=== PATIENT | female | born 1980 | race African-American/Black ===

== ENCOUNTER 2016-08-21 18:23 | Emergency (ER) | payer MEDICARE, OTHER ==
[~2016-08-21] VITALS: Ht 162.6 cm; Wt 125.0 kg
[~2016-08-21 18:23] MED LIST: 1-ME1LIQ PO; CLEAPOW6 PO; CRAN500C2 PO; GLUCTAB PO; LISI-363 PO; NOVOLOGMXP SQ
[2016-08-21 18:26] VITALS: BP 155/96; PULSE 128; RESP 24; TEMP 98; O2SAT 96
[2016-08-21 19:30] VITALS: PULSE 99
[2016-08-21] MEDS ORDERED: SODIUM CHLORIDE 0.9% FLUSH 10 ML FLUSH IVF PRN (20:15)
--- NOTE | 2016-08-21 20:24 | PD ---
HPI Chief Complaint: Skin Problem Time Seen by Provider: 20:17 Travel History International Travel<30 days: No Contact w/Intl Traveler<30days: No Traveled to known affect area: No History of Present Illness HPI Patient comes in for evaluations painful lump in her right submandibular that she awoke with yesterday. Patient denies any trauma, fevers, nausea, vomiting, neck pain, headaches, chest pain, shortness of breath, dental pain, ear pain, or weight loss. Pain is worse with swallowing and eating. Patient states she has been taking her hydrocodone along with aspirin as well as placing the warm compress with little to no improvement of her pain. Denies any radiation of the pain. PFSH Past Medical History Arthritis: Yes Asthma: No Autoimmune Disease: No Blood Disorders: No Bipolar Disorder: Yes Anxiety: Yes Depression: Yes Heart Rhythm Problems: No Cancer: No Cardiovascular Problems: No High Cholesterol: Yes Chemotherapy: No Chest Pain: No Congestive Heart Failure: No COPD: No Cerebrovascular Accident: No Diabetes: Yes (METFORMIN, NOVOLIN ) Diminished Hearing: No Endocrine: No Gastrointestinal Disorders: No GERD: No Glaucoma: No Genitourinary: No Headaches: Yes Hepatitis: No Hiatal Hernia: No Hypertension: Yes Immune Disorder: No Kidney Stones: No Musculoskeletal: No Neurologic: No Psychiatric: Yes Reproductive: No Respiratory: No Immunizations Current: Yes Migraines: No Myocardial Infarction: No Radiation Therapy: No Renal Failure: No Seizures: No Sickle Cell Disease: No Sleep Apnea: No Thyroid Disease: No Ulcer: No : 0 Past Surgical History Abdominal Surgery: No AICD: No Appendectomy: No Arteriovenous Shunt: No Cardiac Surgery: No Cholecystectomy: No Ear Surgery: No Endocrine Surgery: No Eye Surgery: No Genitourinary Surgery: No Gynecologic Surgery: No Insulin Pump: No Joint Replacement: No Neurologic Surgery: No Oral Surgery: No Pacemaker: No Thoracic Surgery: No Other Surgery: No Social History Alcohol Use: Yes ("EVERY BLUE [employer]EL") Tobacco Use: Yes (1 PPD) Substance Use: Yes (COCAINE LAST USED MONDAY) Allergies-Medications (Allergen,Severity, Reaction): Coded Allergies: No Known Allergies (Verified , 07/02/15) Reported Meds & Prescriptions Reported Meds & Active Scripts Active Bactrim DS (Sulfamethoxazole-Trimethoprim) 800-160 Mg Tab 1 Tab PO BID Reported Novolog Mix 70/30 (Insulin Aspart Prota 70%/Aspart 30%) 100 Units/Ml Inj 50 Units SQ DAILY Lisinopril 20 mg (Lisinopril) 20 Mg Tab 20 Mg PO DAILY Polyethylene Glycol 3350 (Polyethylene Glycol) 3,350 Nf Pow 17 Gm PO DAILY PRN DISSOLVE 1 PACKET (17 GM) IN 4-8 OUNCES OF WATER OR JUICE BEFORE CONSUMPTION Cranberry (Cranberry (Vaccinium Macrocarp) 500 Mg Cap 500 Mg PO DAILY PRN 1-Methyl 2-Pyrrolidinone (1-Methyl 2-Pyrrolidone (Bulk)) 10 Mg Tab 1 Tab PO DAILY Glucophage XR 24 HR (Metformin HCl) 500 Mg Tab 500 Mg PO BIDPC Review of Systems Except as stated in HPI: all other systems reviewed are Neg Physical Exam Narrative GENERAL: Well-developed, overly nourished, in no acute distress, and non-ill appearing. SKIN: Warm and dry. HEAD: Atraumatic. Normocephalic. EYES: Pupils equal and round. EOMI. No scleral icterus. No injection or drainage. ENT: No nasal bleeding or discharge. Mucous membranes pink and moist. Tympanic membranes pearly richard bilaterally. Posterior pharynx nonerythematous without exudate. Uvula is midline. There is no visible or palpable dental abscess. Floor the mouth and submental or soft palpation. NECK: Trachea midline. Supple. No nuclear rigidity. Right submandible enlarged lymph node versus abscess versus other. RESPIRATORY: No accessory muscle use. No respiratory distress. Patient speaking in full sentences without difficulty. MUSCULOSKELETAL: No obvious deformities. No clubbing. No cyanosis. No edema. Full range of motion. NEUROLOGICAL: Awake and alert. No obvious cranial nerve deficits. Motor grossly within normal limits. Normal speech. PSYCHIATRIC: Appropriate mood and affect; insight and judgment normal. Data Data Last Documented VS Vital Signs Date Time Temp Pulse Resp B/P Pulse Ox O2 Delivery O2 Flow Rate FiO2 08/21/16 19:30 99 08/21/16 18:26 98.0 24 155/96 96 Room Air Orders Basic Metabolic Panel (Bmp) (08/21/16 20:15) Complete Blood Count With Diff (08/21/16 20:15) Iv Access Insert/Monitor (08/21/16 20:15) Sodium Chloride 0.9% Flush (Ns Flush) (08/21/16 20:15) Ct Soft Tiss Neck W Iv Cont (08/21/16 ) Ketorolac Inj (Toradol Inj) (08/21/16 22:45) Sodium Chlorid 0.9% 500 Ml Inj (Ns 500 M (08/21/16 22:45) Iohexol 350 Inj (Omnipaque 350 Inj) (08/21/16 23:11) Sulfamet-Trimeth Ds 800-160 Mg (Bactrim (08/21/16 23:30) Labs Laboratory Tests Test 08/21/16 08/21/16 20:50 21:30 White Blood Count 9.1 TH/MM3 Red Blood Count 4.53 MIL/MM3 Hemoglobin 12.4 GM/DL Hematocrit 36.6 % Mean Corpuscular Volume 80.8 FL Mean Corpuscular Hemoglobin 27.3 PG Mean Corpuscular Hemoglobin 33.8 % Concent Red Cell Distribution Width 15.0 % Platelet Count 313 TH/MM3 Mean Platelet Volume 8.2 FL Neutrophils (%) (Auto) 62.8 % Lymphocytes (%) (Auto) 26.0 % Monocytes (%) (Auto) 4.5 % Eosinophils (%) (Auto) 6.1 % Basophils (%) (Auto) 0.6 % Neutrophils # (Auto) 5.7 TH/MM3 Lymphocytes # (Auto) 2.4 TH/MM3 Monocytes # (Auto) 0.4 TH/MM3 Eosinophils # (Auto) 0.6 TH/MM3 Basophils # (Auto) 0.1 TH/MM3 CBC Comment DIFF FINAL Differential Comment Sodium Level 140 MEQ/L Potassium Level 4.4 MEQ/L Chloride Level 106 MEQ/L Carbon Dioxide Level 27.0 MEQ/L Anion Gap 7 MEQ/L Blood Urea Nitrogen 13 MG/DL Creatinine 1.04 MG/DL Estimat Glomerular Filtration 72 ML/MIN Rate Random Glucose 104 MG/DL Calcium Level 8.6 MG/DL [facility] Medical Decision Making Medical Screen Exam Complete: Yes Emergency Medical Condition: Yes Differential Diagnosis Lymphadenopathy, abscess, parotiditis, mass, other Narrative Course 2229 patient resting comfortably in bed in no acute distress talking on cellphone without difficulty. The patient has no evidence of obvious abscess at this time. The patient will be discharged on antibiotics for cellulitis. Clinical suspicion, diagnosis and care management was discussed. The patient was given signs and symptoms warnings for worsening infection, such as spreading of redness, increasing pain , and/or swelling, associated heat, pus or fever and instructed to return immediately if these signs or symptoms worsen. The patient is to return in 2 days for recheck. Sooner if worsens or as needed. The patient agrees with plan. Patient in no obvious distress upon re-evaluation. All pertinent laboratory/ Radiology result(s) discussed with patient. Patient was asked if they wanted to speak to my attending, which the patient did not wish to do at this time. Any questions/concerns in reference to patient diagnosis/condition discussed and clarified prior to patient's discharge. Reinforced sheer importance of close follow up with patient's primary physician or primary care clinic or return here in 2 days for recheck. Instructed patient to return to ED immediately, if symptoms return/worsen. Pt showed understanding of above instructions. Further instructions and recommendations were detailed in discharge paperwork. Pt ambulated without difficulty out of ED at discharge. Diagnosis Primary Impression: Cellulitis Qualified Code: L03.221 - Cellulitis of neck Patient Instructions: Cellulitis (ED), General Instructions Additional Instructions: Follow-up with your primary care physician or return here in 2 days for recheck. Take all medication as prescribed. Use [id number] ibuprofen as needed for additional pain control. Follow instructions on the packaging. Apply warm compresses to affected area multiple times a day. Do not take your metformin for 48 hours secondary to having IV contrast dye today to prevent kidney failure. Return to the emergency department if symptoms get worse. Med/Other Pt SpecificInfo: Prescription(s) given Scripts Sulfamethoxazole-Trimethoprim (Bactrim DS)800-160 Mg Tab1 Tab PO BID #20 TAB Ref 0 Prov:Vinod Minor MD 08/21/16 Disposition: 01 DISCHARGE HOME Condition: Stable Danny Priest Aug 21, 2016 20:24
[2016-08-21 21:04] LABS: AUTOMATED NEUTROPHIL # 5.7 TH/MM3 (1.8-7.7); BASOPHIL # 0.1 TH/MM3 (0-0.2); BASOPHIL % 0.6 % (0.0-2.0); EOSINOPHIL # 0.6 TH/MM3 (0-0.4); EOSINOPHIL % 6.1 % (0.0-4.0); HEMATOCRIT 36.6 % (35.0-46.0); HEMO FLAGS DIFF FINAL; LYMPHOCYTE # 2.4 TH/MM3 (1.0-4.8); MEAN CELL VOLUME 80.8 FL (80.0-100.0); MEAN CORPUSCULAR HEMOGLOBIN 27.3 PG (27.0-34.0); MEAN CORPUSCULAR HGB CONC 33.8 % (32.0-36.0); MONO % 4.5 % (0.0-8.0); NEUT % 62.8 % (16.0-70.0); PLATELET COUNT 313 TH/MM3 (150-450); RED BLOOD COUNT 4.53 MIL/MM3 (4.00-5.30); WHITE BLOOD COUNT 9.1 TH/MM3 (4.0-11.0)
[2016-08-21 22:31] LABS: POTASSIUM 4.4 MEQ/L (3.5-5.1)
[2016-08-21] MEDS ORDERED: KETOROLAC TROMETHAMINE 30 MG/ML (IVP) VIAL IV PUSH ONE (22:45)
[2016-08-21] MEDS ORDERED: SODIUM CHLORID 0.9% 500 ML INJ 500 ML IV ONE (22:45)
[2016-08-21] MEDS ORDERED: IOHEXOL 350 MG/ML 10 ML VIAL (for RAD DIAG) IV ONE (23:11)
--- NOTE | 2016-08-21 23:24 | RADRPT ---
EXAM DATE/TIME: 08/21/2016 23:05 [facility] COMPARISON: No previous studies available for comparison. INDICATIONS : Right neck swelling and pain. IV CONTRAST: 70 cc Omnipaque 350 (iohexol) IV RADIATION DOSE: 25.99 CTDIvol (mGy) MEDICAL HISTORY : Hypertension. Diabetes mellitus type 2. SURGICAL HISTORY : None. ENCOUNTER: Initial ACUITY: 1 day PAIN SCALE: 3/10 LOCATION: Right neck TECHNIQUE: Volumetric scanning of the neck was performed. Using automated exposure control and adjustment of th e mA and/or kV according to patient size, radiation dose was kept as low as reasonably achievable to obtain optimal diagnostic quality images. FINDINGS: NASOPHARYNX: The nasopharyngeal airway has a normal configuration. No mucosal thickening or mass is seen. OROPHARYNX: The intrinsic muscles of the tongue are symmetric. The tonsillar pillars are intact. The prevertebr al soft tissues are not thickened. LARYNX: The supraglottic, glottic, and infraglottic structures are intact. PARAPHARYNGEAL: The parapharyngeal space is intact. SALIVARY GLANDS: The parotid and submandibular glands are intact. LYMPH NODES: No enlarged or necrotic-appearing nodes. THYROID: Homogeneous enhancement without evidence of nodule. BONES: Mucous retention cyst in the floor the left maxillary sinus. Minimal induration of the skin/soft tiss ues in the submental region greater on the right. Submental lymph node measures 1 cm in short axis li hellen reactive. CONCLUSION: 1. Minimal induration of the skin/soft tissues the submental region greater on the right. No abscess identified. 2. Reactive lymph nodes in the submental region. Mariano Shi MD on August 21, 2016 at 23:20 Board Certified Radiologist. This report was verified electronically.
[2016-08-21] MEDS ORDERED: SULFAMETHOXAZOLE-TRIMETHOPRIM DS 800-160 MG TAB PO ONE (23:30)
[2016-08-21] MEDS ORDERED: BACT800T5 PO (23:32)
== END 2016-08-21 23:47 | disposition home or self-care (01) ==
LOC: NEPB 18:23
DX: L03.221 Cellulitis of neck (principal); E11.9 Type 2 diabetes mellitus without complications; I10 Essential (primary) hypertension; E78.00 Pure hypercholesterolemia, unspecified; F17.200 Nicotine dependence, unspecified, uncomplicated; Z79.4 Long term (current) use of insulin; Z87.39 Personal history of other diseases of the musculoskeletal system and connective tissue; Z86.59 Personal history of other mental and behavioral disorders
CPT/HCPCS: 70491; 80048; 85025; 96361; 96374; 99283; J1885; J7040; Q9967

== ENCOUNTER 2016-11-11 12:36 | Emergency (ER) | payer OTHER, MEDICARE ==
[~2016-11-11] VITALS: Ht 162.6 cm; Wt 130.0 kg
[~2016-11-11 12:36] MED LIST changes: +BACT800T5 PO
[2016-11-11 12:38] VITALS: BP 112/96; PULSE 79; RESP 16; TEMP 98.3; O2SAT 96
[2016-11-11] MEDS ORDERED: METHOCARBAMOL 500 MG TAB PO ONE (13:15)
[2016-11-11] MEDS ORDERED: IBUPROFEN 800 MG TAB PO ONE (13:15)
[2016-11-11] MEDS ORDERED: IBUP800T23 PO (13:19)
[2016-11-11] MEDS ORDERED: ROBA500T PO (13:19)
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
== END 2016-11-11 13:38 | disposition home or self-care (01) ==
LOC: NEPK 12:36
DX: S39.012A Strain of muscle, fascia and tendon of lower back, initial encounter (principal); S29.012A Strain of muscle and tendon of back wall of thorax, initial encounter; E11.9 Type 2 diabetes mellitus without complications; E78.00 Pure hypercholesterolemia, unspecified; I10 Essential (primary) hypertension; F17.210 Nicotine dependence, cigarettes, uncomplicated; V43.62XA Car passenger injured in collision with other type car in traffic accident, initial encounter; Y93.89 Activity, other specified; Y92.410 Unspecified street and highway as the place of occurrence of the external cause; Y99.8 Other external cause status
CPT/HCPCS: 99283

== ENCOUNTER 2017-02-18 19:49 | Emergency (ER) | payer MEDICARE, OTHER ==
[~2017-02-18] VITALS: Ht 162.6 cm; Wt 125.0 kg
[~2017-02-18 19:49] MED LIST changes: +IBUP800T23 PO; +ROBA500T PO
[2017-02-18 19:52] VITALS: BP 133/90; PULSE 101; RESP 16; TEMP 99.2; O2SAT 96
[2017-02-18] MEDS ORDERED: METF1000 PO (22:28)
[2017-02-18] MEDS ORDERED: NOVOINJ2 SQ (22:29)
[2017-02-18] MEDS: DEXAMETHASONE SOD PHOS 20 MG/5 ML VIAL IM ONE ×2 (22:30→22:32)
[2017-02-18] MEDS ORDERED: RESP: ALBUTEROL 2.5 MG/IPRATROPIUM 0.5 MG NEB (SCH) NEB ONE (22:30)
[2017-02-18] MEDS ORDERED: ALBUAER3 INH (22:30)
--- NOTE | 2017-02-18 22:30 | PD ---
HPI Chief Complaint: Cold / Flu Symptoms Time Seen by Provider: 22:23 Travel History International Travel<30 days: No Contact w/Intl Traveler<30days: No Traveled to known affect area: No History of Present Illness HPI 37 year-old female history diabetes presents to emergency department for evaluation of cough and chest congestion 1 day. Patient states it has been getting worse since yesterday. Denies fever or chills. Cough is nonproductive. States her chest feels tight. Denies any other symptoms at this time. PFSH Past Medical History Arthritis: Yes Asthma: No Autoimmune Disease: No Blood Disorders: No Bipolar Disorder: Yes Anxiety: Yes Depression: Yes Heart Rhythm Problems: No Cancer: No Cardiovascular Problems: No High Cholesterol: Yes Chemotherapy: No Chest Pain: No Congestive Heart Failure: No COPD: No Cerebrovascular Accident: No Diabetes: Yes Patient Takes Glucophage: Yes (METFORMIN 02/18/17 1000) Diminished Hearing: No Endocrine: No Gastrointestinal Disorders: No GERD: No Glaucoma: No Genitourinary: No Headaches: Yes Hepatitis: No Hiatal Hernia: No Hypertension: Yes Immune Disorder: No Kidney Stones: No Musculoskeletal: No Neurologic: No Psychiatric: Yes Reproductive: No Respiratory: No Immunizations Current: Yes Migraines: No Myocardial Infarction: No Radiation Therapy: No Renal Failure: No Seizures: No Sickle Cell Disease: No Sleep Apnea: No Thyroid Disease: No Ulcer: No ?: Not LMP: IRREG : 0 Past Surgical History Abdominal Surgery: No AICD: No Appendectomy: No Arteriovenous Shunt: No Cardiac Surgery: No Cholecystectomy: No Ear Surgery: No Endocrine Surgery: No Eye Surgery: No Genitourinary Surgery: No Gynecologic Surgery: No Insulin Pump: No Joint Replacement: No Neurologic Surgery: No Oral Surgery: No Pacemaker: No Thoracic Surgery: No Other Surgery: No Social History Alcohol Use: Yes ("EVERY BLUE [employer]EL") Tobacco Use: Yes Substance Use: Yes (COCAINE) Allergies-Medications (Allergen,Severity, Reaction): Coded Allergies: No Known Allergies (Verified , 02/18/17) Reported Meds & Prescriptions Reported Meds & Active Scripts Active Proair Hfa 8.5 GM Inh (Albuterol Sulfate) 90 Mcg/Act Aer 2 Puff INH Q4HR PRN 108 mcg/actuation Reported Novolog Mix 70-30 FlexPen Inj (Insulin Aspart Protam-Asp 70-30 Inj) 300 Unit/3 Ml Pen 60 Units SQ BID Metformin (Metformin HCl) 1,000 Mg Tab 1,000 Mg PO BIDPC With meals Review of Systems Except as stated in HPI: all other systems reviewed are Neg Physical Exam Narrative GENERAL: Obese female patient, ambulatory no acute distress SKIN: Focused skin assessment warm/dry. HEAD: Normocephalic. EYES: No scleral icterus. No injection or drainage. NECK: Supple, trachea midline. No JVD or lymphadenopathy. CARDIOVASCULAR: Elevated rate and rhythm without murmurs, gallops, or rubs. RESPIRATORY: Breath sounds diminished equal bilaterally. No accessory muscle use. GASTROINTESTINAL: Abdomen soft, non-tender, nondistended. MUSCULOSKELETAL: No cyanosis, or edema. BACK: Nontender without obvious deformity. No CVA tenderness. Data Data Last Documented VS Vital Signs Date Time Temp Pulse Resp B/P (MAP) Pulse Ox O2 Delivery O2 Flow Rate FiO2 02/18/17 22:53 02/18/17 22:45 97 21 02/18/17 19:52 99.2 101 16 Room Air Orders Orders Dexamethasone Inj (Decadron Inj) (02/18/17 22:30) Albuterol-Ipratropium Neb (Duoneb Neb) (02/18/17 22:30) MDM Medical Decision Making Medical Screen Exam Complete: Yes Emergency Medical Condition: Yes Medical Record Reviewed: Yes Differential Diagnosis Bronchitis versus common cold versus influenza versus pneumonia Narrative Course 37 year-old female presents to emergency department for evaluation of cough and chest congestion worsening 1 day. Patient appears without distress. She has slightly elevated heart rate and a temperature of 99.2. Her breath sounds are diminished, but otherwise exam is without acute concern. She is given 1 dose of Decadron IM here and a DuoNeb treatment. She does verbalize improvement in her symptoms and feeling that she can breathe better. She'll be given a pro- air inhaler. I'll not giving her any additional steroids, but counseled her on monitoring her blood glucose as this may cause a transient increase. Her primary care provider is Dr. Gibbons. I have encouraged her to follow-up with him. She agrees to return immediately with any acute worsening symptoms. Diagnosis Primary Impression: Bronchitis Referrals: Primary Care Physician Patient Instructions: Acute Bronchitis (ED), General Instructions Additional Instructions: Humidified air may help to alleviate symptoms Follow-up the her primary care provider Please monitor your blood glucose closely as you were given steroids here in the emergency department which will cause an increase in her blood glucose Return immediately to the emergency department with any acute worsening symptoms Med/Other Pt SpecificInfo: Prescription(s) given Scripts Albuterol 8.5 GM Inh (Proair Hfa 8.5 GM Inh) 90 Mcg/Act Aer 2 PUFF INH Q4HR Y for SHORTNESS OF BREATH, #1 INHALER 0 Refills 108 mcg/actuation Prov: Lili Llamas 02/18/17 Disposition: 01 DISCHARGE HOME Condition: Stable Lili Llamas Feb 18, 2017 22:30
[2017-02-18 22:45] VITALS: O2SAT 97
== END 2017-02-18 22:53 | disposition home or self-care (01) ==
LOC: NEPD 19:49
DX: J40 Bronchitis, not specified as acute or chronic (principal); E11.9 Type 2 diabetes mellitus without complications; I10 Essential (primary) hypertension; E78.00 Pure hypercholesterolemia, unspecified; Z72.0 Tobacco use; Z79.4 Long term (current) use of insulin; Z87.39 Personal history of other diseases of the musculoskeletal system and connective tissue; Z86.59 Personal history of other mental and behavioral disorders
CPT/HCPCS: 94664; 99283; J1100

== ENCOUNTER 2017-03-02 16:42 | Emergency (ER) | payer MEDICARE, OTHER ==
[~2017-03-02] VITALS: Ht 162.6 cm; Wt 130.0 kg
[~2017-03-02 16:42] MED LIST changes: -1-ME1LIQ PO; +ALBUAER3 INH; -BACT800T5 PO; -CLEAPOW6 PO; -CRAN500C2 PO; -GLUCTAB PO; -IBUP800T23 PO; -LISI-363 PO; +METF1000 PO; +NOVOINJ2 SQ; -NOVOLOGMXP SQ; -ROBA500T PO
[2017-03-02 16:49] VITALS: BP 117/81; PULSE 128; RESP 18; TEMP 98.6; O2SAT 99
[2017-03-02 16:58] VITALS: PULSE 110
--- NOTE | 2017-03-02 17:23 | PD ---
HPI Chief Complaint: ENT Complaint Time Seen by Provider: 17:22 Travel History International Travel<30 days: No Contact w/Intl Traveler<30days: No Traveled to known affect area: No History of Present Illness HPI 37-year-old female presents to emergency department complaint of not being applied here out of her right ear since last night. Says she tried cleaning her ear out with hydrogen peroxide with no success of regaining hearing. Denies ear pain. Denies nasal congestion, sore throat, fever, vomiting. Denies ear drainage. No known aggravating or relieving factors. Has no other medical complaints. No known allergies. No other modifying factors or associated signs and symptoms. PFSH Past Medical History Arthritis: Yes Asthma: No Autoimmune Disease: No Blood Disorders: No Bipolar Disorder: Yes Anxiety: Yes Depression: Yes Heart Rhythm Problems: No Cancer: No Cardiovascular Problems: No High Cholesterol: Yes Chemotherapy: No Chest Pain: No Congestive Heart Failure: No COPD: No Cerebrovascular Accident: No Diabetes: Yes Diminished Hearing: No Endocrine: No Gastrointestinal Disorders: No GERD: No Glaucoma: No Genitourinary: No Headaches: Yes Hepatitis: No Hiatal Hernia: No Hypertension: Yes Immune Disorder: No Kidney Stones: No Musculoskeletal: No Neurologic: No Psychiatric: Yes Reproductive: No Respiratory: No Immunizations Current: Yes Migraines: No Myocardial Infarction: No Radiation Therapy: No Renal Failure: No Seizures: No Sickle Cell Disease: No Sleep Apnea: No Thyroid Disease: No Ulcer: No : 0 Past Surgical History Abdominal Surgery: No AICD: No Appendectomy: No Arteriovenous Shunt: No Cardiac Surgery: No Cholecystectomy: No Ear Surgery: No Endocrine Surgery: No Eye Surgery: No Genitourinary Surgery: No Gynecologic Surgery: No Insulin Pump: No Joint Replacement: No Neurologic Surgery: No Oral Surgery: No Pacemaker: No Thoracic Surgery: No Other Surgery: No Social History Alcohol Use: Yes ("EV[employer]") Tobacco Use: Yes Substance Use: Yes (COCAINE) Allergies-Medications (Allergen,Severity, Reaction): Coded Allergies: No Known Allergies (Verified , 02/18/17) Reported Meds & Prescriptions Reported Meds & Active Scripts Active Proair Hfa 8.5 GM Inh (Albuterol Sulfate) 90 Mcg/Act Aer 2 Puff INH Q4HR PRN 108 mcg/actuation Reported Novolog Mix 70-30 FlexPen Inj (Insulin Aspart Protam-Asp 70-30 Inj) 300 Unit/3 Ml Pen 60 Units SQ BID Metformin (Metformin HCl) 1,000 Mg Tab 1,000 Mg PO BIDPC With meals Review of Systems Except as stated in HPI: all other systems reviewed are Neg Physical Exam Narrative GENERAL: Well-nourished, well-developed black female patient, in no acute distress; afebrile, nontoxic-appearing SKIN: Warm and dry. No rash. HEAD: Atraumatic. Normocephalic. EYES: Pupils equal and round. No scleral icterus. No injection or drainage. ENT: Mucosa pink and moist. Airway patent. EARS: Bilateral pinnae and external canals appear within normal limits. Left tympanic membrane without erythema, dullness or perforation. Unable to visualize right tympanic membrane secondary to foreign body or cerumen impaction. NECK: Trachea midline. No lymphadenopathy. CARDIOVASCULAR: Regular rate. RESPIRATORY: No accessory muscle use. GASTROINTESTINAL: Obese. MUSCULOSKELETAL: No obvious deformities. No clubbing. No cyanosis. No edema. NEUROLOGICAL: Awake and alert. Oriented 3. No obvious cranial nerve deficits. Motor grossly within normal limits. Normal speech. Moves all extremities. 5/5 strength to all extremities. PSYCHIATRIC: Appropriate mood and affect; insight and judgment normal. Data Data Last Documented VS Vital Signs Date Time Temp Pulse Resp B/P (MAP) Pulse Ox O2 Delivery O2 Flow Rate FiO2 03/02/17 16:58 110 03/02/17 16:49 98.6 18 117/81 (93) 99 MDM Medical Decision Making Medical Screen Exam Complete: Yes Emergency Medical Condition: Yes Medical Record Reviewed: Yes Differential Diagnosis Cerumen impaction, foreign body, otitis media Narrative Course 37-year-old female with a foreign body in her right ear. See my procedure note for foreign body removal. Right Tympanic membrane within normal limits after removal of foreign body. Instructed patient to follow up with primary care provider. Patient verbalizes understanding and agreement with treatment plan. Patient is medically cleared and stable for discharge. Discussed reasons to return to the emergency department. Patient agrees with treatment plan. The patients vital signs are stable and the patient is stable for outpatient follow- up and treatment. Patient discharged home, stable and in no acute distress. Procedures Procedure Narrative Right ear canal was flushed using warm water and a 10 mL syringe until the foreign body was cleared. Patient tolerated well. Diagnosis Primary Impression: Foreign body in right ear Qualified Codes: T16.1XXA - Foreign body in right ear, initial encounter Referrals: Primary Care Physician Patient Instructions: Ear Foreign Body (ED), General Instructions Additional Instructions: Follow-up with primary care provider Return to the emergency department immediately with worsening of symptoms Med/Other Pt SpecificInfo: No Meds Exist/No RX given Disposition: 01 DISCHARGE HOME Condition: Stable Patricia Urbina [employer] Mar 02, 2017 17:23
== END 2017-03-02 17:30 | disposition home or self-care (01) ==
LOC: NEPK 16:42
DX: T16.1XXA Foreign body in right ear, initial encounter (principal); E11.9 Type 2 diabetes mellitus without complications; I10 Essential (primary) hypertension; Z72.0 Tobacco use; X58.XXXA Exposure to other specified factors, initial encounter
CPT/HCPCS: 69200

== ENCOUNTER 2017-05-02 02:41 | Emergency (ER) | payer MEDICARE, OTHER ==
[~2017-05-02] VITALS: Ht 157.5 cm; Wt 125.0 kg
[2017-05-02 03:05] VITALS: BP 146/85; PULSE 98; RESP 16; TEMP 98.2; O2SAT 95
[2017-05-02 03:20] LABS: AUTOMATED NEUTROPHIL # 5.2 TH/MM3 (1.8-7.7); BASOPHIL # 0.1 TH/MM3 (0-0.2); BASOPHIL % 1.1 % (0.0-2.0); EOSINOPHIL # 0.4 TH/MM3 (0-0.4); EOSINOPHIL % 4.5 % (0.0-4.0); HEMATOCRIT 36.1 % (35.0-46.0); HEMO FLAGS DIFF FINAL; LYMPH % 23.9 % (9.0-44.0); LYMPHOCYTE # 1.9 TH/MM3 (1.0-4.8); MEAN CELL VOLUME 82.3 FL (80.0-100.0); MEAN CORPUSCULAR HEMOGLOBIN 26.8 PG (27.0-34.0); MEAN CORPUSCULAR HGB CONC 32.6 % (32.0-36.0); MONO % 5.6 % (0.0-8.0); NEUT % 64.9 % (16.0-70.0); PLATELET COUNT 280 TH/MM3 (150-450); RED BLOOD COUNT 4.38 MIL/MM3 (4.00-5.30); RED CELL DISTRIBUTION WIDTH 14.9 % (11.6-17.2)
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
[2017-05-02 03:41] LABS: ALT (GPT) 26 U/L (10-53); ANION GAP 7 MEQ/L (5-15); AST (GOT) 15 U/L (15-37); BICARBONATE 27.7 MEQ/L (21.0-32.0); BLOOD UREA NITROGEN 14 MG/DL (7-18); CHLORIDE 103 MEQ/L (98-107); GLOMERULAR FILTRATION RATE 67 ML/MIN (>89); POTASSIUM 3.7 MEQ/L (3.5-5.1); SODIUM (NA) 138 MEQ/L (136-145)
[2017-05-02 03:43] LABS: ALKALINE PHOSPHATASE 86 U/L (45-117); TOTAL BILIRUBIN ADULT 0.3 MG/DL (0.2-1.0)
[2017-05-02 03:49] LABS: ALCOHOL LESS THAN 3 MG/DL (0-5)
[2017-05-02 06:40] VITALS: BP 154/94; PULSE 101; RESP 17
[2017-05-02 08:13] VITALS: BP 166/93; PULSE 101; RESP 18; O2SAT 99
[2017-05-02] MEDS ORDERED: guaiFENesin/DEXTROMETHORPHAN 200 MG/20 MG/10 ML CUP PO ONE (08:45)
[2017-05-02] MEDS ORDERED: ACETAMINOPHEN 500 MG CPLT PO ONE (08:45)
[2017-05-02 10:14] VITALS: BP 119/72; PULSE 91; RESP 18; O2SAT 99
[2017-05-02 15:27] VITALS: BP 125/72; PULSE 94; RESP 18; O2SAT 100
[2017-05-02 18:24] VITALS: BP 128/60; PULSE 98; RESP 18; O2SAT 95
[2017-05-03] MEDS ORDERED: guaiFENesin/DEXTROMETHORPHAN 200 MG/20 MG/10 ML CUP PO ONE (02:30)
[2017-05-03 05:46] VITALS: BP 152/93; PULSE 92; RESP 17; O2SAT 96
[2017-05-03] MEDS: metFORMIN HCL 500 MG TAB PO ONE (06:30)
[2017-05-03 10:00] VITALS: BP 137/77; PULSE 108; RESP 18; TEMP 98.8; O2SAT 94
[2017-05-13] MEDS ORDERED: metFORMIN HCL 500 MG TAB PO SCH (10:00)
[2017-05-13] MEDS ORDERED: INSULIN ASPAR PROT 70/30 1,000 UNITS/10 ML VIAL SQ SCH (10:00)
== END 2017-05-03 12:17 ==
LOC: NEPD 02:41 → NEPJ 05-03 12:17
DX: R45.851 Suicidal ideations (principal); R44.0 Auditory hallucinations; F14.90 Cocaine use, unspecified, uncomplicated; M19.90 Unspecified osteoarthritis, unspecified site; F31.9 Bipolar disorder, unspecified; F41.9 Anxiety disorder, unspecified; E78.00 Pure hypercholesterolemia, unspecified; E11.9 Type 2 diabetes mellitus without complications; I10 Essential (primary) hypertension
CPT/HCPCS: 80053; 80307; 85025; 99285

== ENCOUNTER 2017-05-13 03:44 | Inpatient (IN) | payer MEDICARE, OTHER ==
[~2017-05-13] VITALS: Ht 162.6 cm; Wt 119.6 kg
[~2017-05-13 03:44] MED LIST changes: -ALBUAER3 INH
[2017-05-13 03:56] VITALS: BP 145/81; PULSE 118; RESP 20; TEMP 98.7; O2SAT 94
--- NOTE | 2017-05-13 04:44 | PD ---
HPI Chief Complaint: Psychiatric Symptoms Time Seen by Provider: 04:43 Travel History International Travel<30 days: No Contact w/Intl Traveler<30days: No Traveled to known affect area: No History of Present Illness HPI 37-year-old female here under Dietz act initiated by Police Department. According to her paperwork the patient has a drug addiction wants to kill herself because of it. The patient reports that she has been binging on crack cocaine. She was involved in an argument this evening with her girlfriend and she did tell them that she wanted to kill herself. She feels that this is primarily caused by her crack cocaine use. Currently she is denying any suicidal or homicidal thoughts. She has no medical complaints at this time. [facility] Past Medical History Arthritis: Yes Asthma: No Autoimmune Disease: No Blood Disorders: No Bipolar Disorder: Yes Anxiety: Yes Depression: Yes Heart Rhythm Problems: No Cancer: No Cardiovascular Problems: No High Cholesterol: Yes Chemotherapy: No Chest Pain: No Congestive Heart Failure: No COPD: No Cerebrovascular Accident: No Diabetes: Yes Patient Takes Glucophage: No Diminished Hearing: No Endocrine: No Gastrointestinal Disorders: No GERD: No Glaucoma: No Genitourinary: No Headaches: Yes Hepatitis: No Hiatal Hernia: No Hypertension: Yes Immune Disorder: No Kidney Stones: No Musculoskeletal: No Neurologic: No Psychiatric: Yes Reproductive: No Respiratory: No Immunizations Current: Yes Migraines: No Myocardial Infarction: No Radiation Therapy: No Renal Failure: No Seizures: No Sickle Cell Disease: No Sleep Apnea: No Thyroid Disease: No Ulcer: No Tetanus Vaccination: > 5 Years Influenza Vaccination: No ?: Unknown LMP: UNK : 0 Past Surgical History Abdominal Surgery: No AICD: No Appendectomy: No Arteriovenous Shunt: No Cardiac Surgery: No Cholecystectomy: No Ear Surgery: No Endocrine Surgery: No Eye Surgery: No Genitourinary Surgery: No Gynecologic Surgery: No Insulin Pump: No Joint Replacement: No Neurologic Surgery: No Oral Surgery: No Pacemaker: No Thoracic Surgery: No Other Surgery: No Social History Alcohol Use: Yes ("EV[employer]") Tobacco Use: Yes (4 cigarettes) Substance Use: Yes (crack COCAINE) Allergies-Medications (Allergen,Severity, Reaction): Coded Allergies: No Known Allergies (Verified , 03/02/17) Reported Meds & Prescriptions Reported Meds & Active Scripts Active Reported Novolog Mix 70-30 FlexPen Inj (Insulin Aspart Protam-Asp 70-30 Inj) 300 Unit/3 Ml Pen 60 Units SQ BID Metformin (Metformin HCl) 1,000 Mg Tab 1,000 Mg PO BIDPC With meals Review of Systems Except as stated in HPI: all other systems reviewed are Neg Physical Exam Narrative GENERAL: Well-nourished female in no acute distress SKIN: Warm and dry. HEAD: Atraumatic. Normocephalic. EYES: Pupils equal and round. No scleral icterus. No injection or drainage. ENT: No nasal bleeding or discharge. Mucous membranes pink and moist. NECK: Trachea midline. No JVD. CARDIOVASCULAR: Regular rate and rhythm. No murmur appreciated. RESPIRATORY: No accessory muscle use. Clear to auscultation. Breath sounds equal bilaterally. GASTROINTESTINAL: Abdomen soft, non-tender, nondistended. Hepatic and splenic margins not palpable. MUSCULOSKELETAL: No obvious deformities. No clubbing. No cyanosis. No edema. NEUROLOGICAL: Awake and alert. No obvious cranial nerve deficits. Motor grossly within normal limits. Normal speech. PSYCHIATRIC: Appropriate mood and affect; insight and judgment normal. Data Data Last Documented VS Vital Signs Date Time Temp Pulse Resp B/P (MAP) Pulse Ox O2 Delivery O2 Flow Rate FiO2 05/13/17 03:56 98.7 118 20 145/81 (102) 94 Orders Orders Ed Urine Pregnancytest Poc (05/13/17 03:52) Psych Screen (05/13/17 03:52) Drug Screen, Random Urine (05/13/17 03:52) Labs Laboratory Tests Test 05/13/17 04:12 [facility] Medical Decision Making Medical Screen Exam Complete: Yes Emergency Medical Condition: Yes Medical Record Reviewed: Yes Differential Diagnosis Substance-induced mood disorder, acute psychosis, adjustment reaction, major depressive disorder Narrative Course 37-year-old female here under Dietz act. Mental health screening discussed with the patient. Psychiatric screen ordered. Patient was here earlier in April. Lab work reviewed. Patient is medically cleared. Diagnosis Primary Impression: Substance induced mood disorder Homero Harrison May 13, 2017 04:44
--- NOTE | 2017-05-13 07:59 | PD ---
Physical Exam Date Seen by Provider: May 13, 2017 Narrative 37-year-old female presents to the emergency department requesting to receive assistance on detox. This patient was medically cleared by the previous provider and is ready to see psych. Patient's blood sugar was 325. After interviewing the patient, patient states that she does not check her blood sugar and that she just wants to be clean of crack cocaine. Patient denies fever, chills, chest pain, cough, shortness of breath, nausea, vomiting, diarrhea. Patient has a history of diabetes and asthma. Patient is not been using her medications or checking her blood sugar. Vital signs- stable. Mild tachycardia. Labs ordered to evaluate mild tachycardia and decreased oxygen saturation. Note that patient was reluctant to have any IV or labs drawn because of previous difficulty. Patient adamantly denies chest pain, shortness of breath, or pain anywhere else. Patient does have asthma may also have obstructive sleep apnea which may be cm to her tachycardia and decreased oxygenation. Laboratory Tests Test 05/13/17 04:12 05/13/17 08:25 05/13/17 09:05 Urine Opiates Screen NEG Urine Barbiturates Screen NEG Urine Amphetamines Screen NEG Urine Benzodiazepines Screen NEG Urine Cocaine Screen POS Urine Cannabinoids Screen POS White Blood Count 10.2 TH/MM3 Red Blood Count 4.38 MIL/MM3 Hemoglobin 12.0 GM/DL Hematocrit 36.1 % Mean Corpuscular Volume 82.5 FL Mean Corpuscular Hemoglobin 27.4 PG Mean Corpuscular Hemoglobin Concent 33.2 % Red Cell Distribution Width 14.4 % Platelet Count 303 TH/MM3 Mean Platelet Volume 8.4 FL Neutrophils (%) (Auto) 55.1 % Lymphocytes (%) (Auto) 28.1 % Monocytes (%) (Auto) 7.7 % Eosinophils (%) (Auto) 8.0 % Basophils (%) (Auto) 1.1 % Neutrophils # (Auto) 5.6 TH/MM3 Lymphocytes # (Auto) 2.9 TH/MM3 Monocytes # (Auto) 0.8 TH/MM3 Eosinophils # (Auto) 0.8 TH/MM3 Basophils # (Auto) 0.1 TH/MM3 CBC Comment DIFF FINAL Differential Comment Blood Urea Nitrogen 21 MG/DL Creatinine 1.30 MG/DL Random Glucose 334 MG/DL Calcium Level 8.8 MG/DL Sodium Level 135 MEQ/L Potassium Level 4.5 MEQ/L Chloride Level 104 MEQ/L Carbon Dioxide Level 25.0 MEQ/L Anion Gap 6 MEQ/L Estimat Glomerular Filtration Rate 55 ML/MIN Troponin I LESS THAN 0.02 NG/ML EKG without ST elevations or depressions. Sinus tachycardia. Chest x-ray without acute process. DDimer elevated. Will order CT angio to R/o PE. D-dimer slightly elevated. I explained to patient that there could be a clot in her lungs and requires CT to evaluate her lungs. Patient adamantly refuses to obtain another IV for her contrast. Patient is alert and oriented, not intoxicated, competent to make medical decisions. Patient understands wrist versus benefits. She also understands that if she changes her mind she may still obtain this test. I do not have a high suspicion pulmonary embolism. I suspect that the d-dimer is elevated secondary to uncontrolled diabetes. Patient will still be admitted to psych with medical consult. Pt will be admitted to psych per Dr. Haney. Data Data Last Documented VS Vital Signs Date Time Temp Pulse Resp B/P (MAP) Pulse Ox O2 Delivery O2 Flow Rate FiO2 05/13/17 08:00 106 18 170/70 (103) 94 Room Air 05/13/17 03:56 98.7 Orders Orders Ed Urine Pregnancytest Poc (05/13/17 03:52) Psych Screen (05/13/17 03:52) Drug Screen, Random Urine (05/13/17 03:52) Complete Blood Count With Diff (05/13/17 08:30) Basic Metabolic Panel (Bmp) (05/13/17 08:30) Troponin I (05/13/17 08:30) Electrocardiogram (05/13/17 08:30) Chest, Single Ap (05/13/17 08:30) D-Dimer (05/13/17 09:02) Admit To Inpatient Psych (05/13/17 ) Vital Signs (Adult) [id number].Q12H.E (05/13/17 09:05) Activity Oob Ad Jailyn (05/13/17 09:05) Lorazepam (Ativan) (05/13/17 09:15) Lorazepam (Ativan) (05/13/17 09:15) Acetaminophen (Tylenol) (05/13/17 09:15) Magnesium Hydroxide Liq (Milk Of Magnesi (05/13/17 09:15) Al-Mag Hy-Si 40-40-4 Mg/Ml Liq (Mag-Al P (05/13/17 09:15) Nicotine 21 Mg Patch.24 Hr (Habitrol 21 (05/13/17 10:00) Basic Metabolic Panel (Bmp) (05/14/17 06:00) Lipid Profile (05/14/17 06:00) Hemoglobin (Hgb) A1c (05/14/17 06:00) Labs Laboratory Tests Test 05/13/17 04:12 05/13/17 08:25 05/13/17 09:05 Urine Opiates Screen NEG Urine Barbiturates Screen NEG Urine Amphetamines Screen NEG Urine Benzodiazepines Screen NEG Urine Cocaine Screen POS Urine Cannabinoids Screen POS White Blood Count 10.2 TH/MM3 Red Blood Count 4.38 MIL/MM3 Hemoglobin 12.0 GM/DL Hematocrit 36.1 % Mean Corpuscular Volume 82.5 FL Mean Corpuscular Hemoglobin 27.4 PG Mean Corpuscular Hemoglobin Concent 33.2 % Red Cell Distribution Width 14.4 % Platelet Count 303 TH/MM3 Mean Platelet Volume 8.4 FL Neutrophils (%) (Auto) 55.1 % Lymphocytes (%) (Auto) 28.1 % Monocytes (%) (Auto) 7.7 % Eosinophils (%) (Auto) 8.0 % Basophils (%) (Auto) 1.1 % Neutrophils # (Auto) 5.6 TH/MM3 Lymphocytes # (Auto) 2.9 TH/MM3 Monocytes # (Auto) 0.8 TH/MM3 Eosinophils # (Auto) 0.8 TH/MM3 Basophils # (Auto) 0.1 TH/MM3 CBC Comment DIFF FINAL Differential Comment Blood Urea Nitrogen 21 MG/DL Creatinine 1.30 MG/DL Random Glucose 334 MG/DL Calcium Level 8.8 MG/DL Sodium Level 135 MEQ/L Potassium Level 4.5 MEQ/L Chloride Level 104 MEQ/L Carbon Dioxide Level 25.0 MEQ/L Anion Gap 6 MEQ/L Estimat Glomerular Filtration Rate 55 ML/MIN Troponin I LESS THAN 0.02 NG/ML D-Dimer Quantitative (PE/DVT) 0.81 MG/L FEU MDM Supervised Visit with KYLEIGH: Yes Diagnosis Primary Impression: Substance induced mood disorder Nyla Evangelista May 13, 2017 07:59
[2017-05-13 08:00] VITALS: BP 170/70; PULSE 106; RESP 18; O2SAT 94
[2017-05-13 08:47] LABS: AUTOMATED NEUTROPHIL # 5.6 TH/MM3 (1.8-7.7); BASOPHIL # 0.1 TH/MM3 (0-0.2); BASOPHIL % 1.1 % (0.0-2.0); EOSINOPHIL # 0.8 TH/MM3 (0-0.4); HEMATOCRIT 36.1 % (35.0-46.0); HEMO FLAGS DIFF FINAL; LYMPH % 28.1 % (9.0-44.0); LYMPHOCYTE # 2.9 TH/MM3 (1.0-4.8); MEAN CELL VOLUME 82.5 FL (80.0-100.0); MEAN CORPUSCULAR HEMOGLOBIN 27.4 PG (27.0-34.0); MEAN CORPUSCULAR HGB CONC 33.2 % (32.0-36.0); MONO % 7.7 % (0.0-8.0); NEUT % 55.1 % (16.0-70.0); PLATELET COUNT 303 TH/MM3 (150-450); RED BLOOD COUNT 4.38 MIL/MM3 (4.00-5.30); RED CELL DISTRIBUTION WIDTH 14.4 % (11.6-17.2); WHITE BLOOD COUNT 10.2 TH/MM3 (4.0-11.0)
--- NOTE | 2017-05-13 08:56 | RADRPT ---
EXAM DATE/TIME: 05/13/2017 08:37 [facility] COMPARISON: No previous studies available for comparison. INDICATIONS : Cough and shortness of breath. MEDICAL HISTORY : None. SURGICAL HISTORY : None. ENCOUNTER: Initial ACUITY: 1 month PAIN SCORE: 0/10 LOCATION: chest FINDINGS: A single view of the chest demonstrates the lungs to be symmetrically aerated without evidence of mas s, infiltrate or effusion. The cardiomediastinal contours are unremarkable. Osseous structures are intact. CONCLUSION: No acute disease. Jabari Disla MD on May 13, 2017 at 8:54 Board Certified Radiologist. This report was verified electronically.
[2017-05-13 09:09] LABS: BLOOD UREA NITROGEN 21 MG/DL (7-18); GLOMERULAR FILTRATION RATE 55 ML/MIN (>89)
[2017-05-13 09:10] LABS: ANION GAP 6 MEQ/L (5-15); CHLORIDE 104 MEQ/L (98-107); POTASSIUM 4.5 MEQ/L (3.5-5.1); SODIUM (NA) 135 MEQ/L (136-145)
[2017-05-13] MEDS ORDERED: ALUMINUM/MAGNESIUM/SIMETH 30 ML CUP PO PRN (09:15)
[2017-05-13] MEDS ORDERED: LORazepam 1 MG TAB PO PRN (09:15)
[2017-05-13] MEDS ORDERED: LORazepam 0.5 MG TAB PO PRN (09:15)
[2017-05-13] MEDS: NICOTINE 21 MG/24 HR PATCH T-DERMAL SCH (09:52)
[2017-05-13 10:28] VITALS: BP 130/74; PULSE 95; RESP 18; O2SAT 94
--- NOTE | 2017-05-13 11:51 | HHI.HP ---
Provisional Diagnosis Admission Date May 13, 2017 at 09:07 [place] I. Bipolar disorder, cocaine and cannabis use disorder [place] II. Deferred [place] III. Diabetes, hypertension [place] IV. Homelessness, lack of social and family support [place] V. 50 Certification of Person's Competence To Provide Express and Informed Consent I have personally examined Esmer Dee , a person being served at [facility] on, May 13, 2017 11:37. Express and informed consent means consent voluntarily given in writing, by a competent person, after sufficient explanation and disclosure of the subject matter involved to enable the person to make a knowing and willful decision without any element of force, fraud, deceit, duress, or other form of constraint or coercion. This person is 18 years of age or older, is not now known to be incompetent to consent to treatment with a guardian advocate, and does not have a health care surrogate or proxy currently making medical treatment decisions. I have found this person to be one of the following: [x] Competent to provide express and informed consent, as defined above, for voluntary admission to this facility and is competent to provide express and informed consent for treatment. He/she has the consistent capacity to make well reasoned, willful, and knowing decisions concerning his or her medical or mental health treatment. The person fully and consistently understands the purpose of the admission for examination/placement and is fully capable of personally exercising all rights assured under [place] Incompetent to provide express and informed consent to voluntary admission, and this is incompetent to provide express and informed consent to treatment. The person must be transferred to involuntary status and a petition for a guardian advocate filed with the Circuit Court. [] Refusing to provide express and informed consent to voluntary admission but is competent to provide express and informed consent for treatment. The person must be discharged or transferred to involuntary status. Form shall be completed within 24 hours of a person's arrival at the receiving facility and filed in the clinical record of each person: 1. Admitted on a voluntary basis 2. Permitted to provide express and informed consent to his/her own treatment 3. Allowed to transfer from involuntary to voluntary status 4. Prior to permitting a person to consent to his or her own treatment after having been previously found incompetent to consent to treatment. History of Present Illness Capacity: Has Capacity HPI The patient is a 37-year-old woman, homeless, single, unemployed, with psychiatric history bipolar disorder, previous psychotic hospitalizations, cocaine and cannabis use disorder, poor compliant with psychotropics, no outpatient care, with medical history hypertension and diabetes, who presents to the emergency department initially requesting to receive assistance on detox, but posteriorly stated that she wanted to kill herself and was Dietz acted by the ER physician. Patient's blood sugar was 325. After interviewing the patient, patient states that she does not check her blood sugar and that she just wants to be clean of crack cocaine. Patient denies fever, chills, chest pain, cough, shortness of breath, nausea, vomiting, diarrhea. Patient has a history of diabetes and asthma. Patient is not been using her medications or checking her blood sugar. Vital signs- stable. Mild tachycardia. Labs ordered to evaluate mild tachycardia and decreased oxygen saturation. Note that patient was reluctant to have any IV or labs drawn because of previous difficulty.Patient adamantly denies chest pain, shortness of breath, or pain anywhere else. Patient does have asthma may also have obstructive sleep apnea which may be cm to her tachycardia and decreased oxygenation. On psychiatric evaluation today patient is irritable, very disheveled and malodorous, and is states that she is tired to be homeless and a drug addict and she wants to . The patient says that she wants to kill herself jumping into traffic or jumping off a bridge today. During the evaluation the patient is tearful, she endorses depression, sense of worthlessness, helplessness, hopelessness, lack of motivation to live, very poor social and family support, she says that she has no reason to live anymore and "my only way out is stoping drugs and is starting my medications for bipolar disorder, please help me". Patient reports daily use of cocaine and cannabis, she denies use of alcohol. She is oriented 3, no fluctuation of consciousness, no gross cognitive impairment present. Review of Systems Constitutional: DENIES: Diaphoretic episodes, Fatigue, Fever, Weight gain, Weight loss, Chills, Dizziness, Change in appetite, Night Sweats Endocrine: DENIES: Abnorml menstrual pattern, Heat/cold intolerance, Polydipsia , Polyuria, Polyphagia Eyes: DENIES: Blurred vision, Diplopia, Eye inflammation, Eye pain, Vision loss , Photosensitivity, Double Vision Ears, nose, mouth, throat: DENIES: Tinnitus, Hearing loss, Vertigo, Nasal discharge, Oral lesions, Throat pain, Hoarseness, Ear Pain, Running Nose, Epistaxis, Sinus Pain, Toothache, Odynophagia Respiratory: DENIES: Apneas, Cough, Snoring, Wheezing, Hemoptysis, Sputum production, Shortness of breath Cardiovascular: DENIES: Chest pain, Palpitations, Syncope, Dyspnea on Exertion , PND, Lower Extremity Edema, Orthopnea, Claudication Gastrointestinal: DENIES: Abdominal pain, Black stools, Bloody stools, Constipation, Diarrhea, Nausea, Vomiting, Difficulty Swallowing, Anorexia Genitourinary: DENIES: Abnormal vaginal bleeding, Dysmenorrhea, Dyspareunia, Sexual dysfunction, Urinary frequency, Urinary incontinence, Urgency, Hematuria , Dysuria, Nocturia, Vaginal discharge Musculoskeletal: DENIES: Joint pain, Muscle aches, Stiffness, Joint Swelling, Back pain, Neck pain Integumentary: DENIES: Abnormal pigmentation, Pruritus, Rash, Nail changes, Breast masses, Breast skin changes, Nipple discharge Hematologic/lymphatic: DENIES: Bruising, Lymphadenopathy Immunologic/allergic: DENIES: Eczema, Urticaria Neurologic: DENIES: Abnormal gait, Headache, Localized weakness, Paresthesias, Seizures, Speech Problems, Tremor, Poor Balance Psychiatric: COMPLAINS OF: Mood changes, Depression, Suicidal Ideation Past Psych History Violence risk - self (6 mos) Increased Substance Abuse History Drugs/Alcohol past 12 months Cocaine and cannabis daily Past Family Social History Coded Allergies: No Known Allergies (Verified Allergy, Unknown, 05/13/17) Reported Medications Insulin Aspart Protam-Asp 70-30 Inj (Novolog Mix 70-30 FlexPen Inj) 300 Unit/3 Ml Pen, 60 UNITS SQ BID for Blood Sugar Management, #1 PEN 0 Refills 02/18/17 Metformin (Metformin) 1,000 Mg Tab, 1000 MG PO BIDPC for Blood Sugar Management , #60 TAB 0 Refills With meals 02/18/17 Current Medications Medications (Trade) Dose Ordered Sig/Kodak Route Start Time Stop Time Status Last Admin (Ativan) 1 mg Q6H PRN PO 05/13/17 09:15 (Tylenol) 650 mg Q4H PRN PO 05/13/17 09:15 (Milk Of Magnesia Liq) 30 ml DAILY PRN PO 05/13/17 09:15 (Mag-Al Plus Susp Liq) 30 ml Q6H PRN PO 05/13/17 09:15 (Habitrol 21 Mg Patch.24 Hr) 1 patch DAILY T-DERMAL 05/13/17 10:00 05/13/17 09:52 Miscellaneous Information 1 HS T-DERMAL 05/13/17 21:00 (Desyrel) 100 mg HS PO 05/13/17 21:00 UNV Family Psych History Patient denies family psychiatric history Social History Patient was born and raised in [place] [place], she is unemployed, single, supported by [facility] Patient's Strengths (min. 2) Verbal communication Physical Exam No tremors, no EPS, no withdrawal, no dystonia, patient seems to be hypoactive, psychomotor retarded Vital Signs Vital Signs Date Time Temp Pulse Resp B/P (MAP) Pulse Ox O2 Delivery O2 Flow Rate FiO2 05/13/17 10:28 95 18 130/74 (92) 94 Room Air 05/13/17 03:56 98.7 Lab Results Test 05/13/17 04:12 05/13/17 08:25 05/13/17 09:05 Urine Opiates Screen NEG Urine Barbiturates Screen NEG Urine Amphetamines Screen NEG Urine Benzodiazepines Screen NEG Urine Cocaine Screen POS Urine Cannabinoids Screen POS White Blood Count 10.2 TH/MM3 Red Blood Count 4.38 MIL/MM3 Hemoglobin 12.0 GM/DL Hematocrit 36.1 % Mean Corpuscular Volume 82.5 FL Mean Corpuscular Hemoglobin 27.4 PG Mean Corpuscular Hemoglobin Concent 33.2 % Red Cell Distribution Width 14.4 % Platelet Count 303 TH/MM3 Mean Platelet Volume 8.4 FL Neutrophils (%) (Auto) 55.1 % Lymphocytes (%) (Auto) 28.1 % Monocytes (%) (Auto) 7.7 % Eosinophils (%) (Auto) 8.0 % Basophils (%) (Auto) 1.1 % Neutrophils # (Auto) 5.6 TH/MM3 Lymphocytes # (Auto) 2.9 TH/MM3 Monocytes # (Auto) 0.8 TH/MM3 Eosinophils # (Auto) 0.8 TH/MM3 Basophils # (Auto) 0.1 TH/MM3 CBC Comment DIFF FINAL Differential Comment Blood Urea Nitrogen 21 MG/DL Creatinine 1.30 MG/DL Random Glucose 334 MG/DL Calcium Level 8.8 MG/DL Sodium Level 135 MEQ/L Potassium Level 4.5 MEQ/L Chloride Level 104 MEQ/L Carbon Dioxide Level 25.0 MEQ/L Anion Gap 6 MEQ/L Estimat Glomerular Filtration Rate 55 ML/MIN Troponin I LESS THAN 0.02 NG/ML D-Dimer Quantitative (PE/DVT) 0.81 MG/L FEU Mental Status Examination Appearance: Appropriate Consciousness: Alert Orientation: x4 Motor Activity: Normal gait Speech: Unremarkable Language: Adequate Fund of Knowledge: Adequate Attention and Concentration: Adequate Memory: Unremarkable Mood: Appropriate, Sad Affect: Irritable, Sad Thought Process & Associations: Intact Thought Content: Appropriate Hallucination Type: None Delusion Type: None Suicidal Ideation: Yes Suicidal Plan: Yes Suicidal Intention: No Homicidal Ideation: No Homicidal Plan: No Homicidal Intention: No Insight: Adequate Judgment: Adequate Assessment & Plan Problem List: (1) Bipolar 1 disorder, depressed ICD Codes: F31.9 - Bipolar disorder, unspecified Assessment & Plan: On psychiatric evaluation today the patient reports symptomatology of severe depression, suicidal ideation with the intention and plan of jumping in front of traffic or jumping off a bridge. Patient has psychotic history of bipolar disorder, multiple psychiatric hospitalizations, suicidal attempts, noncompliant with medications, use of cocaine and cannabis, no outpatient care at this moment. At the moment of my evaluation the patient is in an increased risk of danger to herself, but she is insightful and motivated to get psychiatric treatment, to restart medications and was poorly be connected with a rehabilitation program. Patient will be admitted in psychiatry for stabilization and safety. We will start Trazodone 100 mg at bedtime for depression. Consider a mood stabilizer after the patient is medically clear. Will consult medicine for recommendations regarding her medical conditions. She will sign voluntary admission. Breath supportive psychotherapy provided. barrow worker helper intervention for collateral information, individual and group therapies, to coordinate a safe discharge. Transfer patient to med psych unit. Assessment & Plan Estimated LOS: days Deyvi Mae MD May 13, 2017 11:51
[2017-05-13] MEDS ORDERED: cloNIDine HCL 0.1 MG TAB PO PRN (13:15)
[2017-05-13] MEDS ORDERED: GLUCAGON 1 MG/ML VIAL OTHER PRN (13:15)
[2017-05-13] MEDS ORDERED: DEXTROSE 50% IN WATER 50 ML VIAL(D50) IV PUSH PRN (13:15)
[2017-05-13 13:45] VITALS: BP 137/70; PULSE 100; RESP 18; TEMP 98.6; O2SAT 97
--- NOTE | 2017-05-13 14:34 | PD.CONS ---
HPI Service [facility] Hospitalists Consult Requested By Psychiatric service Reason for Consult Medical management Primary Care Physician Georges Gibbons DO Diagnoses: History of Present Illness Written by Lola Cook, acting as scribe for Dr. Santana on 05/13/17 at 14: 10. This is a 37yo female with PMHX significant for HTN, HLD, DM. OA with chronic pain, bipolar disorder and crack cocaine use who was admitted to inpatient psychiatric unit for detox and suicidal ideation. Hospitalist services have been consulted for medical management. Patient seen and examined. Patient reports cough due to crack cocaine use. She was clean for three years but began using again last month. She denies any fever or chills. She denies any chest pain or dyspnea. She denies any nausea, vomiting or abdominal pain. She denies any history of kidney disease. Review of Systems Except as stated in HPI: all other systems reviewed are Neg Past Family Social History Allergies: Coded Allergies: No Known Allergies (Verified Allergy, Unknown, 05/13/17) Past Medical History HTN HLD DM Bipolar disorder Osteoarthritis Anxiety Depression Chronic pain under the care of pain management Past Surgical History Left foot surgery x 2 Reported Medications Novolog Mix 70-30 FlexPen Inj (Insulin Aspart Protam-Asp 70-30 Inj) 300 Unit/3 Ml Pen 60 Units SQ BID Metformin (Metformin HCl) 1,000 Mg Tab 1,000 Mg PO BIDPC With meals Active Ordered Medications Current Medications Medications (Trade) Dose Ordered Sig/Kodak Route Start Time Stop Time Status Last Admin (Ativan) 1 mg Q6H PRN PO 05/13/17 09:15 (Tylenol) 650 mg Q4H PRN PO 05/13/17 09:15 (Milk Of Magnesia Liq) 30 ml DAILY PRN PO 05/13/17 09:15 (Mag-Al Plus Susp Liq) 30 ml Q6H PRN PO 05/13/17 09:15 (Habitrol 21 Mg Patch.24 Hr) 1 patch DAILY T-DERMAL 05/13/17 10:00 05/13/17 09:52 Miscellaneous Information 1 HS T-DERMAL 05/13/17 21:00 (Desyrel) 100 mg HS PO 05/13/17 21:00 (Catapres) 0.1 mg Q6H PRN PO 05/13/17 13:15 (D50w (Vial) Inj) 50 ml UNSCH PRN IV PUSH 05/13/17 13:15 (Glucagon Inj) 1 mg UNSCH PRN OTHER 05/13/17 13:15 (NovoLIN R SUPPLEMENTAL SCALE) 1 ACHS SLIDING SCALE SQ 05/13/17 17:00 Family History CAD, DM Brother, secondary to MT Mother, cancer Social History Patient denies any alcohol use. She reports crack cocaine use, last used yesterday. She denies any IVDU. Physical Exam Vital Signs Vital Signs Date Time Temp Pulse Resp B/P (MAP) Pulse Ox O2 Delivery O2 Flow Rate FiO2 05/13/17 10:28 95 18 130/74 (92) 94 Room Air 05/13/17 08:00 106 18 170/70 (103) 94 Room Air 05/13/17 03:56 98.7 118 20 145/81 (102) 94 Physical Exam GENERAL: This is a well-nourished, well-developed obese patient, in no apparent distress. Awake and alert. SKIN: No rashes, ecchymoses or lesions. Cool and dry. HEAD: Atraumatic. Normocephalic. No temporal or scalp tenderness. EYES: Pupils equal round and reactive. Extraocular motions intact. No scleral icterus. No injection or drainage. ENT: Nose without bleeding or purulent drainage. Throat without erythema, tonsillar hypertrophy or exudate. Uvula midline. Airway patent. NECK: Trachea midline. No lymphadenopathy. Supple, nontender, no meningeal signs. CARDIOVASCULAR: Regular rate and rhythm without murmurs, gallops, or rubs. RESPIRATORY: Distant lung sounds. GASTROINTESTINAL: Abdomen soft, non-tender, nondistended. No hepato-splenomegaly , or palpable masses. No guarding. MUSCULOSKELETAL: Extremities without clubbing or cyanosis. (+)trace bilateral lower extremity edema. NEUROLOGICAL: Awake and alert. Able to move all extremities spontaneously. No focal neurologic finding appreciated. Normal speech. Laboratory Laboratory Tests Test 05/13/17 04:12 05/13/17 08:25 05/13/17 09:05 Urine Opiates Screen NEG Urine Barbiturates Screen NEG Urine Amphetamines Screen NEG Urine Benzodiazepines Screen NEG Urine Cocaine Screen POS Urine Cannabinoids Screen POS White Blood Count 10.2 Red Blood Count 4.38 Hemoglobin 12.0 Hematocrit 36.1 Mean Corpuscular Volume 82.5 Mean Corpuscular Hemoglobin 27.4 Mean Corpuscular Hemoglobin Concent 33.2 Red Cell Distribution Width 14.4 Platelet Count 303 Mean Platelet Volume 8.4 Neutrophils (%) (Auto) 55.1 Lymphocytes (%) (Auto) 28.1 Monocytes (%) (Auto) 7.7 Eosinophils (%) (Auto) 8.0 Basophils (%) (Auto) 1.1 Neutrophils # (Auto) 5.6 Lymphocytes # (Auto) 2.9 Monocytes # (Auto) 0.8 Eosinophils # (Auto) 0.8 Basophils # (Auto) 0.1 CBC Comment DIFF FINAL Differential Comment Blood Urea Nitrogen 21 Creatinine 1.30 Random Glucose 334 Calcium Level 8.8 Sodium Level 135 Potassium Level 4.5 Chloride Level 104 Carbon Dioxide Level 25.0 Anion Gap 6 Estimat Glomerular Filtration Rate 55 Troponin I LESS THAN 0.02 D-Dimer Quantitative (PE/DVT) 0.81 Result Diagram: 05/13/1782405/13/17824 Imaging Last Impressions Chest X-Ray 05/13/17829 Signed Impressions: Service Date/Time: Monday, May 13, 2017 08:37 - CONCLUSION: No acute disease. Jabari Disla MD Assessment and Plan Assessment and Plan 37yo female with PMHX significant for HTN, HLD, DM. OA with chronic pain, bipolar disorder and crack cocaine use who was admitted to inpatient psychiatric unit for detox and suicidal ideation. Hospitalist services have been consulted for medical management. Depression Anxiety Suicidal ideation - Management per psychiatric team Hypertension - BP currently controlled off of medications - Clonidine 0.1mg po q6h prn bp>160/90 - continue to monitor and initiate treatment if indicated DM - diabetic diet - accucheck and ISS - consult natural resources extension educator PADILLA - creatinine 1.30/GFR 55 - baseline creatinine appears to be around 1 - patient denies any hx of kidney disease - renal failure workup ordered to include urine sodium and creatinine, UA, renal US - avoid nephrotoxic agents - monitor kidney function Crack cocaine use Marijuana use - UDS positive for cocaine and cannabis - counselled patient on cessation Cough - secondary to crack cocaine use - CXR shows no acute disease, images personally reviewed DVT prophylaxis - patient is ambulatory Discussed Condition With patient, nursing staff This note was transcribed by wilmer Bush. I, Dr. Emanuel Santana personally performed the history, physical exam, and medical decision making; and confirmed the accuracy of the information in the transcribed note. Authenticated by Dr. Emanuel Santana on 05/13/17 at 14:22. Lola Cook May 13, 2017 14:34 Emanuel Santana MD May 13, 2017 20:05
[2017-05-13] MEDS ORDERED: LISI10TA3 PO (15:15)
[2017-05-13] MEDS ORDERED: GABA600T PO (15:16)
[2017-05-13] MEDS ORDERED: HYDR-3583 PO (15:16)
--- NOTE | 2017-05-13 15:47 | EKG ---
Date Performed: 05/13/2017 Time Performed: 08:46:08 PTAGE: 37 years EKG: SINUS TACHYCARDIA ABNORMAL RHYTHM ECG PREVIOUS TRACING : 12/29/2007 13.26 No significant change from previous tracing noted. DOCTOR: Gerhard Allen Interpretating Date/Time 05/13/2017 15:46:01
[2017-05-13] MEDS: INSULIN NovoLIN REGULAR SUPPLEMENTAL SCALE SQ SCH ×2 (16:23→20:22)
--- NOTE | 2017-05-13 16:33 | RADRPT ---
EXAM DATE/TIME: 05/13/2017 15:16 [place] COMPARISON: No previous studies available for comparison. INDICATIONS : Acute kidney infection. MEDICAL HISTORY : Hypercholesterolemia. Hypertension. Arthritis. Diabetes. Depression. Anxiety. Claustrophobia. SURGICAL HISTORY : Left foot surgery. ENCOUNTER: Initial ACUITY: 1 day PAIN SCORE: 3/10 LOCATION: Bilateral flank MEASUREMENTS: RIGHT KIDNEY: 10.7 x 4.2 x 5.0 cm LEFT KIDNEY: 11.7 x 3.5 x 4.8 cm FINDINGS: RIGHT KIDNEY: Renal cortex is normal in thickness and echotexture. No hydronephrosis, stone, or mass. LEFT KIDNEY: Renal cortex is normal in thickness and echotexture. No hydronephrosis, stone, or mass. BLADDER: Within normal limits given the degree of distension. CONCLUSION: 1. Limited examination due to patient's body habitus. 2. Unremarkable sonographic appearance of the kidneys. No evidence for obstructive uropathy. Denny Araujo MD on May 13, 2017 at 16:30 Board Certified Radiologist. This report was verified electronically.
[2017-05-13 17:06] LABS: BLOOD, URINE NEG (NEG); COMMENT (UR) CULT NOT INDICATED; CULTURE IF INDICATED CULT NOT INDICATED; GLUCOSE,URINE 1000 mg/dL (NEG); KETONE, URINE NEG (NEG); MUCUS URINE FEW /lpf (OCC); NITRITE,URINE NEG (NEG); SQUAMOUS EPITHELIAL CELL URINE 2 /hpf (0-5); URINE COLOR LIGHT-YELLOW (YELLW/STRAW)
[2017-05-13] MEDS: traZODone HCL 100 MG TAB PO SCH (20:21)
[2017-05-13] MEDS: REMOVE OLD NICODERM (NICOTINE) PATCH T-DERMAL SCH (20:22)
[2017-05-14 06:00] VITALS: BP 128/73; PULSE 95; RESP 18; TEMP 98; O2SAT 100
--- NOTE | 2017-05-14 07:31 | HHI.PR ---
Subjective Remarks Patient in bed refusing labs. She is sleepy. No n/v/d/c. Says she feels good. No chest pain , sob. Objective Vitals Vital Signs Date Time Temp Pulse Resp B/P (MAP) Pulse Ox O2 Delivery O2 Flow Rate FiO2 05/14/17 06:00 98.0 95 18 128/73 (91) 100 05/13/17 13:45 98.6 100 18 137/70 (92) 97 05/13/17 10:28 95 18 130/74 (92) 94 Room Air 05/13/17 08:00 106 18 170/70 (103) 94 Room Air I/O 05/13/17 05/13/17 05/13/17 05/14/17 05/14/17 05/14/17 07:00 15:00 23:00 07:00 15:00 23:00 Intake Total 0 ml Balance 0 ml Intake Oral 0 ml # Voids 1 # Bowel Movements 0 Result Diagram: 05/13/17 0825 05/13/17 0825 Imaging Last Impressions Chest X-Ray 05/13/17 0830 Signed Impressions: Service Date/Time: Saturday, May 13, 2017 08:37 - CONCLUSION: No acute disease. Jabari Dilsa MD Renal Ultrasound 05/13/17 0000 Signed Impressions: Service Date/Time: Saturday, May 13, 2017 15:16 - CONCLUSION: 1. Limited examination due to patient's body habitus. 2. Unremarkable sonographic appearance of the kidneys. No evidence for obstructive uropathy. Denny Araujo MD Objective Remarks GENERAL: This is a well-nourished, well-developed obese patient, in no apparent distress. Awake and alert. CARDIOVASCULAR: Regular rate and rhythm without murmurs, gallops, or rubs. RESPIRATORY: Distant lung sounds. GASTROINTESTINAL: Abdomen soft, non-tender, nondistended. No hepato-splenomegaly , or palpable masses. No guarding. MUSCULOSKELETAL: Extremities without clubbing or cyanosis. (+)trace bilateral lower extremity edema. NEUROLOGICAL: Awake and alert. Able to move all extremities spontaneously. No focal neurologic finding appreciated. Normal speech. A/P Assessment and Plan 37yo female with PMHX significant for HTN, HLD, DM. OA with chronic pain, bipolar disorder and crack cocaine use who was admitted to inpatient psychiatric unit for detox and suicidal ideation. Hospitalist services have been consulted for medical management. Depression Anxiety Suicidal ideation - Management per psychiatric team Hypertension - BP currently controlled off of medications - Clonidine 0.1mg po q6h prn bp>160/90 - continue to monitor and initiate treatment if indicated DM2 uncontrolled. BS in 300s - diabetic diet - accucheck and ISS. Add long acting levemir 10U at bedtime as patient with BS in 300s. Check A1c. patient however is refusing labs. Monitor and adjust as need. - consult parent educator PADILLA - creatinine 1.30/GFR 55 on admission. Monitor kidney function. - baseline creatinine appears to be around 1 - patient denies any hx of kidney disease - renal failure workup ordered to include urine sodium and creatinine, UA normal, renal US normal - avoid nephrotoxic agents Crack cocaine use Marijuana use - UDS positive for cocaine and cannabis - counselled patient on cessation Cough - secondary to crack cocaine use - CXR shows no acute disease, images personally reviewed DVT prophylaxis - patient is ambulatory Discussed Condition With patient, nurse Barbie Askew MD May 14, 2017 07:31
[2017-05-14] MEDS: INSULIN NovoLIN REGULAR SUPPLEMENTAL SCALE SQ SCH ×4 (07:49→20:16)
[2017-05-14] MEDS: NICOTINE 21 MG/24 HR PATCH T-DERMAL SCH (07:49)
[2017-05-14] MEDS: GABAPENTIN 300 MG CAP PO SCH ×2 (12:23→17:03)
[2017-05-14] MEDS: IBUPROFEN 600 MG TAB PO SCH (12:23)
[2017-05-14] MEDS: MAGNESIUM HYDROXIDE SUSP 30 ML CUP PO PRN (12:43)
--- NOTE | 2017-05-14 13:56 | HHI.PYPN ---
Subjective Remarks Pt was seen and case discussed with nursing. Pt is pleasant and cooperative with exam. She continues to attribute her admission to cocaine use and is quite perseverative on this topic derailing the interview. Mood is "so/so." She denies suicidal ideation intent or plan. Tolerating medications well. Behaving well on the unit. Sleeping well per nursing. No increased energy. Mental Status Examination Appearance: Appropriate Consciousness: Alert Orientation: x4 Motor Activity: Normal gait Speech: Unremarkable Language: Adequate Fund of Knowledge: Adequate Attention and Concentration: Adequate Memory: Unremarkable Mood: Appropriate, Sad Affect: Sad Thought Process & Associations: Intact Thought Content: Appropriate Hallucination Type: None Delusion Type: None Suicidal Ideation: No Suicidal Plan: No Suicidal Intention: No Homicidal Ideation: No Homicidal Plan: No Homicidal Intention: No Insight: Adequate Judgment: Adequate Results Labs Test 05/13/17 16:20 Urine Color LIGHT-YELLOW Urine Turbidity CLEAR Urine pH 6.0 Urine Specific [place] 1.017 Urine Protein NEG mg/dL Urine Glucose (UA) 1000 mg/dL Urine Ketones NEG mg/dL Urine Occult Blood NEG Urine Nitrite NEG Urine Bilirubin NEG Urine Urobilinogen LESS THAN 2.0 MG/DL Urine Leukocyte Esterase NEG Urine RBC 1 /hpf Urine WBC LESS THAN 1 /hpf Urine Squamous Epithelial Cells 2 /hpf Urine Mucus FEW /lpf Microscopic Urinalysis Comment CULT NOT INDICATED Urine Eosinophils NONE SEEN /HPF Urine Random Creatinine 64 MG/DL Urine Random Total Protein 14 MG/DL Urine Random Sodium 64 MEQ/L Urine Protein/Creatinine Ratio 0.22 Vitals/IOs Vital Signs Date Time Temp Pulse Resp B/P (MAP) Pulse Ox O2 Delivery O2 Flow Rate FiO2 05/14/17 06:00 98.0 95 18 128/73 (91) 100 05/13/17 10:28 Room Air Intake and Output 05/14/17 05/14/17 05/15/17 08:00 16:00 00:00 Intake Total 240 ml 240 ml Balance 240 ml 240 ml Assessment & Plan Problem List: (1) Bipolar 1 disorder, depressed ICD Codes: F31.9 - Bipolar disorder, unspecified Assessment & Plan Continue current treatment plan. Justification for Cont. Inpt. Patient would decompensate in a less restrictive setting. Ramon Rico DO May 14, 2017 13:56
[2017-05-14 18:00] VITALS: BP 152/84; PULSE 95; RESP 18; TEMP 98.3; O2SAT 95
[2017-05-14] MEDS: traZODone HCL 100 MG TAB PO SCH (20:16)
[2017-05-14] MEDS: REMOVE OLD NICODERM (NICOTINE) PATCH T-DERMAL SCH (20:19)
[2017-05-14 20:36] LABS: ANION GAP 7 MEQ/L (5-15); BICARBONATE 24.8 MEQ/L (21.0-32.0); BLOOD UREA NITROGEN 21 MG/DL (7-18); CHLORIDE 99 MEQ/L (98-107); GLOMERULAR FILTRATION RATE 57 ML/MIN (>89); POTASSIUM 4.9 MEQ/L (3.5-5.1); SODIUM (NA) 131 MEQ/L (136-145)
[2017-05-14] MEDS ORDERED: INSULIN DETEMIR 100 UNITS/ML VIAL SQ SCH (21:00)
[2017-05-15 06:12] VITALS: BP 128/69; PULSE 99; RESP 16; TEMP 97.8; O2SAT 96
[2017-05-15] MEDS: NICOTINE 21 MG/24 HR PATCH T-DERMAL SCH (07:04)
[2017-05-15] MEDS: INSULIN NovoLIN REGULAR SUPPLEMENTAL SCALE SQ SCH ×2 (08:00→12:00)
[2017-05-15] MEDS: GABAPENTIN 300 MG CAP PO SCH ×3 (08:13→16:56)
[2017-05-15 08:53] LABS: AUTOMATED NEUTROPHIL # 3.5 TH/MM3 (1.8-7.7); BASOPHIL # 0.1 TH/MM3 (0-0.2); BASOPHIL % 1.3 % (0.0-2.0); EOSINOPHIL # 0.6 TH/MM3 (0-0.4); EOSINOPHIL % 7.5 % (0.0-4.0); HEMATOCRIT 37.3 % (35.0-46.0); HEMO FLAGS DIFF FINAL; LYMPH % 36.1 % (9.0-44.0); LYMPHOCYTE # 2.6 TH/MM3 (1.0-4.8); MEAN CELL VOLUME 82.1 FL (80.0-100.0); MEAN CORPUSCULAR HEMOGLOBIN 27.3 PG (27.0-34.0); MEAN CORPUSCULAR HGB CONC 33.3 % (32.0-36.0); MONO % 7.4 % (0.0-8.0); NEUT % 47.7 % (16.0-70.0); PLATELET COUNT 325 TH/MM3 (150-450); RED BLOOD COUNT 4.55 MIL/MM3 (4.00-5.30); RED CELL DISTRIBUTION WIDTH 14.2 % (11.6-17.2); WHITE BLOOD COUNT 7.3 TH/MM3 (4.0-11.0)
[2017-05-15 09:28] LABS: BICARBONATE 26.7 MEQ/L (21.0-32.0); POTASSIUM 4.5 MEQ/L (3.5-5.1)
[2017-05-15 09:31] LABS: HDL CHOLESTEROL 26.7 MG/DL (40.0-60.0)
--- NOTE | 2017-05-15 12:32 | HHI.PYPN ---
Subjective Remarks Patient seen for follow-up, chart reviewed. Discussion she staff reported the patient reported feeling depressed and having suicidal ideations. Patient found sitting in hospital bed eating lunch, cooperative interview today. Patient states that she had been feeling down and depressed for the past 2 days after she found that a close friend of hers had recently. Patient states that she's had other losses which have been contributing to her current depression which include her mother having in the year 1999, brother in 2007 grandmother in 2013. Patient states that she's been having suicidal ideation for the past day with appointment at this time. Patient states she has a history of selfish behavior via cutting and one suicide attempt via overdose years ago. Patient states her current stressors include family discord, difficulty with tried to attain sobriety from cocaine use and currently interested in outpatient rehabilitation program. Patient also states being interested in a sober living which will continue to be explored. Patient states that she has a patient providers to include primary care doctor Dr. Gibbons which she has an outpatient follow-up on 24 May as well as pain management physician Dr. Rangel which has a follow-up appointment on 17 May. At this time patient continues to endorse feeling depressed, continues to endorse suicidal ideations at this time denies any perceptual disturbances or delusions. Review of Systems Except as stated in HPI: all other systems reviewed are Neg Mental Status Examination Appearance: Appropriate Consciousness: Alert Orientation: x4 Motor Activity: Normal gait Speech: Unremarkable Language: Adequate Fund of Knowledge: Adequate Attention and Concentration: Adequate Memory: Unremarkable Mood: Appropriate, Sad Affect: Sad Thought Process & Associations: Intact Thought Content: Appropriate Hallucination Type: None Delusion Type: None Suicidal Ideation: Yes Suicidal Plan: No Suicidal Intention: No Homicidal Ideation: No Homicidal Plan: No Homicidal Intention: No Insight: Fair Judgment: Impulsive Results Labs Labs reviewed. Test 05/14/17 19:19 05/15/17 08:06 Blood Urea Nitrogen 21 MG/DL 16 MG/DL Creatinine 1.27 MG/DL 1.19 MG/DL Random Glucose 320 MG/DL 257 MG/DL Calcium Level 9.0 MG/DL 8.8 MG/DL Sodium Level 131 MEQ/L 135 MEQ/L Potassium Level 4.9 MEQ/L 4.5 MEQ/L Chloride Level 99 MEQ/L 100 MEQ/L Carbon Dioxide Level 24.8 MEQ/L 26.7 MEQ/L Anion Gap 7 MEQ/L 8 MEQ/L Estimat Glomerular Filtration Rate 57 ML/MIN 61 ML/MIN White Blood Count 7.3 TH/MM3 Red Blood Count 4.55 MIL/MM3 Hemoglobin 12.4 GM/DL Hematocrit 37.3 % Mean Corpuscular Volume 82.1 FL Mean Corpuscular Hemoglobin 27.3 PG Mean Corpuscular Hemoglobin Concent 33.3 % Red Cell Distribution Width 14.2 % Platelet Count 325 TH/MM3 Mean Platelet Volume 8.7 FL Neutrophils (%) (Auto) 47.7 % Lymphocytes (%) (Auto) 36.1 % Monocytes (%) (Auto) 7.4 % Eosinophils (%) (Auto) 7.5 % Basophils (%) (Auto) 1.3 % Neutrophils # (Auto) 3.5 TH/MM3 Lymphocytes # (Auto) 2.6 TH/MM3 Monocytes # (Auto) 0.5 TH/MM3 Eosinophils # (Auto) 0.6 TH/MM3 Basophils # (Auto) 0.1 TH/MM3 CBC Comment DIFF FINAL Differential Comment Triglycerides Level 226 MG/DL Cholesterol Level 132 MG/DL LDL Cholesterol 60 MG/DL HDL Cholesterol 26.7 MG/DL Cholesterol/HDL Ratio 4.94 RATIO Vitals/IOs Vital Signs Date Time Temp Pulse Resp B/P (MAP) Pulse Ox O2 Delivery O2 Flow Rate FiO2 05/15/17 06:12 97.8 99 16 128/69 (88) 96 05/13/17 10:28 Room Air Intake and Output 05/15/17 05/15/17 05/16/17 08:00 16:00 00:00 Intake Total 240 ml Balance 240 ml Assessment & Plan Problem List: (1) Bipolar 1 disorder, depressed ICD Codes: F31.9 - Bipolar disorder, unspecified Assessment & Plan Patient is a 2-year-old after medical woman who carries a diagnoses of self- reported bipolar disorder, cocaine use disorder, marijuana use disorder recently admitted for depressive symptoms along with suicidal ideations and acute kidney injury. Patient continues to report feeling depressed along with active suicidal ideations at this time. We'll start duloxetine 20 mg by mouth twice a day for depression, continue trazodone 100 mg at bedtime continue To 600 mg 3 times a day. Continue recommendations as per primary medical team. Patient will be evaluated information regarding sober living as well as rehabilitation programs. Discharge planning in progress Justification for Cont. Inpt. At risk for further decompensation if at lower level of care Discharge Planning Patient to be referred to sober living or homeless skilled nursing once psychiatrically stable. Mariano Cárdenas MD May 15, 2017 12:32
[2017-05-15] MEDS: DULoxetine HCl DR 20 MG CAP PO SCH ×2 (14:25→21:22)
--- NOTE | 2017-05-15 15:21 | PD.TTN ---
Patient Problems 1. Discharge planning 2. Medication compliance 3. Knowledge deficit 4. Lack of coping skills Progress Toward Goals Provider Present: Dr. Montse Cárdenas Provider Input: 05/15/2017 Patient will be stablized and started on medication to address her mood Nurse(s) Present: OLIVIA Posada Nurse(s) Input: Patient is anxious, and entitled with an agitated mood Psychiatric Counselors Present: ROSALES Carrera Psych Therapist Input: 05/15/17; Patient is new and will be oriented with outpatient services/treatment Group Spec/RT/OT/OREILLY Present: Iván Bautista OT Group Spec/RT/OT/OREILLY Input: 05/15/17; patient is new and wuill be oriented with groups and activities Documentation Scribe: ROSALES Carrera Teaching Recipient: Julia Del Valle May 15, 2017 15:21
[2017-05-15 16:31] LABS: HEMOGLOBIN A1a 1.2 %; HEMOGLOBIN A1b 1.2 %; HEMOGLOBIN Ao 78.7 %; HEMOGLOBIN F 1.6 %; HEMOGLOBIN LA1C 3.5 %; HEMOGLOBIN P3 5.3 %
[2017-05-15] MEDS: INSULIN ASPART SUPPLEMENTAL SCALE SQ SCH ×2 (16:56→21:21)
--- NOTE | 2017-05-15 17:16 | HHI.PR ---
Subjective Remarks denies cp/sob. Blood sugar very elevated in the 200's Objective Vitals Vital Signs Date Time Temp Pulse Resp B/P (MAP) Pulse Ox O2 Delivery O2 Flow Rate FiO2 05/15/17 06:12 97.8 99 16 128/69 (88) 96 05/14/17 18:00 98.3 95 18 152/84 (106) 95 I/O 05/14/17 05/14/17 05/14/17 05/15/17 05/15/17 05/15/17 07:00 15:00 23:00 07:00 15:00 23:00 Intake Total 480 ml 480 ml 1200 ml 240 ml Output Total 3 ml Balance 480 ml 480 ml 1197 ml 240 ml Intake Oral 480 ml 480 ml 1200 ml 240 ml Output Urine Total 3 ml # Voids 1 2 2 # Bowel Movements 0 Result Diagram: 05/15/17 0806 05/15/17 0806 Imaging Last Impressions Chest X-Ray 05/13/17 0830 Signed Impressions: Service Date/Time: Saturday, May 13, 2017 08:37 - CONCLUSION: No acute disease. Jabari Disla MD Renal Ultrasound 05/13/17 0000 Signed Impressions: Service Date/Time: Saturday, May 13, 2017 15:16 - CONCLUSION: 1. Limited examination due to patient's body habitus. 2. Unremarkable sonographic appearance of the kidneys. No evidence for obstructive uropathy. Denny Araujo MD Objective Remarks GENERAL: This is a well-nourished, well-developed obese patient, in no apparent distress. Awake and alert. CARDIOVASCULAR: Regular rate and rhythm without murmurs, gallops, or rubs. RESPIRATORY: Distant lung sounds. GASTROINTESTINAL: Abdomen soft, non-tender, nondistended. No hepato-splenomegaly , or palpable masses. No guarding. MUSCULOSKELETAL: Extremities without clubbing or cyanosis. (+)trace bilateral lower extremity edema. NEUROLOGICAL: Awake and alert. Able to move all extremities spontaneously. No focal neurologic finding appreciated. Normal speech. Medications and IVs Current Medications Medications (Trade) Dose Ordered Sig/Kodak Route Start Time Stop Time Status Last Admin (Ativan) 1 mg Q6H PRN PO 05/13/17 09:15 (Tylenol) 650 mg Q4H PRN PO 05/13/17 09:15 (Milk Of Magnesia Liq) 30 ml DAILY PRN PO 05/13/17 09:15 05/14/17 12:43 (Mag-Al Plus Susp Liq) 30 ml Q6H PRN PO 05/13/17 09:15 (Habitrol 21 Mg Patch.24 Hr) 1 patch DAILY T-DERMAL 05/13/17 10:00 05/13/17 09:52 Miscellaneous Information 1 HS T-DERMAL 05/13/17 21:00 05/13/17 20:22 (Desyrel) 100 mg HS PO 05/13/17 21:00 05/14/17 20:16 (Catapres) 0.1 mg Q6H PRN PO 05/13/17 13:15 (D50w (Vial) Inj) 50 ml UNSCH PRN IV PUSH 05/13/17 13:15 (Glucagon Inj) 1 mg UNSCH PRN OTHER 05/13/17 13:15 (Neurontin) 600 mg TID PO 05/14/17 13:00 05/15/17 16:56 (Motrin) 600 mg STAT PO 05/14/17 12:15 05/14/17 12:23 (Cymbalta Dr) 20 mg BID PO 05/15/17 14:00 05/15/17 14:25 (NovoLOG SUPPLEMENTAL SCALE) 1 ACHS SLIDING SCALE SQ 05/15/17 17:00 05/15/17 16:56 (Prinivil) 10 mg BID PO 05/15/17 21:00 (NovoLOG MIX 70/ 30 INJ) 60 units BID SQ 05/15/17 21:00 A/P Assessment and Plan 37yo female with PMHX significant for HTN, HLD, DM. OA with chronic pain, bipolar disorder and crack cocaine use who was admitted to inpatient psychiatric unit for detox and suicidal ideation. Hospitalist services have been consulted for medical management. Depression Anxiety Suicidal ideation - Management per psychiatric team Hypertension - resume lisinopril. BP acceptable. Continue to monitor vital signs. DM2 uncontrolled. BS in 200s - diabetic diet - accucheck and ISS. - consult art educator - Will resume NovoLog mix 70/30, 60 units subcutaneous twice a day. PADILLA - creatinine 1.30/GFR 55 on admission. Monitor kidney function. - baseline creatinine appears to be around 1 - patient denies any hx of kidney disease - renal failure workup ordered to include urine sodium and creatinine, UA normal, renal US normal - avoid nephrotoxic agents - 05/15 creatinine trending down and currently 1.19. Continue to monitor BUN /creatinine. Crack cocaine use Marijuana use - UDS positive for cocaine and cannabis - counselled patient on cessation Cough - secondary to crack cocaine use - CXR shows no acute disease, images personally reviewed DVT prophylaxis - patient is ambulatory Elvin Prescott MD May 15, 2017 17:16
[2017-05-15 18:00] VITALS: BP 144/93; PULSE 106; RESP 18; TEMP 98.2; O2SAT 94
[2017-05-15] MEDS: REMOVE OLD NICODERM (NICOTINE) PATCH T-DERMAL SCH (21:00)
[2017-05-15] MEDS ORDERED: [UNRECOGNIZED DRUG - OTHER] SQ SCH (21:00)
[2017-05-15] MEDS: INSULIN ASPAR PROT 70/30 1,000 UNITS/10 ML VIAL SQ SCH (21:21)
[2017-05-15] MEDS: LISINOPRIL 10 MG TAB PO SCH (21:22)
[2017-05-15] MEDS: traZODone HCL 100 MG TAB PO SCH (21:22)
[2017-05-16 05:43] VITALS: BP 106/61; PULSE 102; RESP 17; TEMP 97.8; O2SAT 93
--- NOTE | 2017-05-16 07:48 | HHI.PYPN ---
Subjective Remarks Patient seen for follow-up, chart review. Discussion she staff reported patient denies suicidal ideation last evening it was noted to be on the phone a lot during the evening. Patient was found lying in hospital bed, cooperative with interview. Patient stated that she slept well, reports of her being "all right" stating that she continues to feel sad and depressed "so-so" as well as endorsing intermittent suicidal ideations. Patient states that she has reached out to one of her friends for support but is unsure whether she will be able to stay with her upon discharge. Patient reports tolerating medications well, eating and drinking well, reports planning on reaching sobriety after discharge. Patient states she had a history of being sober for 3 years states that she is motivated to that again. Review of Systems Except as stated in HPI: all other systems reviewed are Neg Mental Status Examination Appearance: Appropriate Consciousness: Alert Orientation: x4 Motor Activity: Normal gait Speech: Unremarkable Language: Adequate Fund of Knowledge: Adequate Attention and Concentration: Adequate Memory: Unremarkable Mood: Sad Affect: Sad Thought Process & Associations: Intact Thought Content: Appropriate Hallucination Type: None Delusion Type: None Suicidal Ideation: Yes (intermittently) Suicidal Plan: No Suicidal Intention: No Homicidal Ideation: No Homicidal Plan: No Homicidal Intention: No Insight: Fair Judgment: Impulsive Results Labs Labs reviewed Test 05/15/17 08:06 White Blood Count 7.3 TH/MM3 Red Blood Count 4.55 MIL/MM3 Hemoglobin 12.4 GM/DL Hematocrit 37.3 % Mean Corpuscular Volume 82.1 FL Mean Corpuscular Hemoglobin 27.3 PG Mean Corpuscular Hemoglobin Concent 33.3 % Red Cell Distribution Width 14.2 % Platelet Count 325 TH/MM3 Mean Platelet Volume 8.7 FL Neutrophils (%) (Auto) 47.7 % Lymphocytes (%) (Auto) 36.1 % Monocytes (%) (Auto) 7.4 % Eosinophils (%) (Auto) 7.5 % Basophils (%) (Auto) 1.3 % Neutrophils # (Auto) 3.5 TH/MM3 Lymphocytes # (Auto) 2.6 TH/MM3 Monocytes # (Auto) 0.5 TH/MM3 Eosinophils # (Auto) 0.6 TH/MM3 Basophils # (Auto) 0.1 TH/MM3 CBC Comment DIFF FINAL Differential Comment Blood Urea Nitrogen 16 MG/DL Creatinine 1.19 MG/DL Random Glucose 257 MG/DL Calcium Level 8.8 MG/DL Sodium Level 135 MEQ/L Potassium Level 4.5 MEQ/L Chloride Level 100 MEQ/L Carbon Dioxide Level 26.7 MEQ/L Anion Gap 8 MEQ/L Estimat Glomerular Filtration Rate 61 ML/MIN Triglycerides Level 226 MG/DL Cholesterol Level 132 MG/DL LDL Cholesterol 60 MG/DL HDL Cholesterol 26.7 MG/DL Cholesterol/HDL Ratio 4.94 RATIO Vitals/IOs Vital Signs Date Time Temp Pulse Resp B/P (MAP) Pulse Ox O2 Delivery O2 Flow Rate FiO2 05/16/17 05:43 97.8 102 17 106/61 (76) 93 05/13/17 10:28 Room Air Intake and Output 05/16/17 05/16/17 05/17/17 08:00 16:00 00:00 Intake Total 360 ml Balance 360 ml Assessment & Plan Problem List: (1) Bipolar 1 disorder, depressed ICD Codes: F31.9 - Bipolar disorder, unspecified Assessment & Plan Patient at this time continues to report feeling depressed, having intermittent suicidal ideations at this time. Patient reports tolerating medication well but reports having more positive outlook with plans of which she sobriety. We' ll continue current treatment for now. Continue recommendations from primary medical team. Discharge planning was Justification for Cont. Inpt. At risk for further decompensation if at lower level of care Discharge Planning Patient to be discharged to friend's residence or sober living facility Mariano Cárdenas MD May 16, 2017 07:48
[2017-05-16] MEDS: INSULIN ASPART SUPPLEMENTAL SCALE SQ SCH ×4 (08:00→20:33)
[2017-05-16] MEDS: INSULIN ASPAR PROT 70/30 1,000 UNITS/10 ML VIAL SQ SCH ×2 (09:00→20:32)
[2017-05-16] MEDS: NICOTINE 21 MG/24 HR PATCH T-DERMAL SCH (09:00)
[2017-05-16] MEDS: LISINOPRIL 10 MG TAB PO SCH ×2 (10:10→20:33)
[2017-05-16] MEDS: DULoxetine HCl DR 20 MG CAP PO SCH ×2 (10:10→20:34)
[2017-05-16] MEDS: GABAPENTIN 300 MG CAP PO SCH ×3 (10:10→17:25)
--- NOTE | 2017-05-16 13:22 | HHI.PR ---
Subjective Remarks only uses cocaine and suicidal no overnight issues Objective Vitals Vital Signs Date Time Temp Pulse Resp B/P (MAP) Pulse Ox O2 Delivery O2 Flow Rate FiO2 05/16/17 05:43 97.8 102 17 106/61 (76) 93 05/15/17 18:00 98.2 106 18 144/93 (110) 94 I/O 05/15/17 05/15/17 05/15/17 05/16/17 05/16/17 05/16/17 07:00 15:00 23:00 07:00 15:00 23:00 Intake Total 240 ml 1080 ml 360 ml 480 ml Balance 240 ml 1080 ml 360 ml 480 ml Intake Oral 240 ml 1080 ml 360 ml 480 ml # Voids 2 2 1 Result Diagram: 05/15/17 0806 05/15/17 0806 A/P Assessment and Plan htn dm hyperlipidemia arthritis medically stable cleared for discharge Trent Aguirre MD May 16, 2017 13:22
[2017-05-16] MEDS: MAGNESIUM HYDROXIDE SUSP 30 ML CUP PO PRN (16:30)
[2017-05-16 18:01] VITALS: BP 124/61; PULSE 112; RESP 17; TEMP 98; O2SAT 93
[2017-05-16] MEDS: traZODone HCL 100 MG TAB PO SCH (20:34)
[2017-05-16] MEDS: REMOVE OLD NICODERM (NICOTINE) PATCH T-DERMAL SCH (21:00)
[2017-05-17 05:07] VITALS: BP 124/62; PULSE 101; RESP 20; TEMP 98.2; O2SAT 96
[2017-05-17] MEDS: ACETAMINOPHEN 325 MG TAB PO PRN (05:15)
[2017-05-17] MEDS: INSULIN ASPART SUPPLEMENTAL SCALE SQ SCH ×4 (07:57→21:37)
[2017-05-17] MEDS: INSULIN ASPAR PROT 70/30 1,000 UNITS/10 ML VIAL SQ SCH ×2 (08:49→21:00)
[2017-05-17] MEDS: LISINOPRIL 10 MG TAB PO SCH ×2 (08:50→21:38)
[2017-05-17] MEDS: DULoxetine HCl DR 20 MG CAP PO SCH (08:50)
[2017-05-17] MEDS: GABAPENTIN 300 MG CAP PO SCH ×3 (08:50→18:45)
[2017-05-17] MEDS: NICOTINE 21 MG/24 HR PATCH T-DERMAL SCH (08:52)
--- NOTE | 2017-05-17 10:39 | HHI.PYPN ---
Subjective Remarks Patient seen for follow-up, chart reviewed. Discussion she staff reported the patient had reported feeling depressed along with having suicidal ideation last evening but denied this morning. Patient was found lying in hospital bed, cooperative. Patient states that she is still feeling depressed due to recent loss of a close friend who she considered practically family along with having continued intermittent suicidal ideations. Patient states last time she had thoughts of wanting to end her life was last evening. Patient states that she was feeling upset yesterday due to her roommate [place] her to sleep and felt fearful that her roommate would do something to her. Patient states that she continues to plan on remaining sober from cocaine use and plans on returning back to her friend's residence and engaging in outpatient rehabilitation and follow-up 1 psychiatrically stable. Review of Systems Except as stated in HPI: all other systems reviewed are Neg Mental Status Examination Appearance: Appropriate Consciousness: Alert Orientation: x4 Motor Activity: Normal gait Speech: Unremarkable Language: Adequate Fund of Knowledge: Adequate Attention and Concentration: Adequate Memory: Unremarkable Mood: Sad Affect: Sad Thought Process & Associations: Intact Thought Content: Appropriate Hallucination Type: None Delusion Type: None Suicidal Ideation: Yes Suicidal Plan: No Suicidal Intention: No Homicidal Ideation: No Homicidal Plan: No Homicidal Intention: No Insight: Fair Judgment: Impulsive Results Vitals/IOs Vital Signs Date Time Temp Pulse Resp B/P (MAP) Pulse Ox O2 Delivery O2 Flow Rate FiO2 05/17/17 06:45 5 05/17/17 05:07 98.2 101 124/62 (82) 96 05/13/17 10:28 Room Air Assessment & Plan Problem List: (1) Adjustment disorder with depressed mood ICD Codes: F43.21 - Adjustment disorder with depressed mood Assessment & Plan Patient this time continues report feeling depressed along with having intermittent suicidal ideations. Patient states that she continues to feel great sense of loss with her recent passing of her close friend. Although patient has a prior psychiatric diagnoses of bipolar disorder at this time patient more likely to be expressing adjustment disorder with depressed mood in the context of recent relapse of cocaine use. We'll increase duloxetine to 30 mg by mouth twice a day for depression. Continue rest of medications and recommendations as per primary medical team. Discharge planning in progress Justification for Cont. Inpt. At risk for further decompensation if at lower level of care Discharge Planning Patient to return back to her friend's residence was psychiatrically and medically stable. Mariano Cárdenas MD May 17, 2017 10:39
--- NOTE | 2017-05-17 13:52 | PD.TTN ---
Patient Problems 1. Discharge planning 2. Medication compliance 3. Knowledge deficit 4. Lack of coping skills Progress Toward Goals Provider Present: Dr. Montse Cárdenas Provider Input: 05/17/2017; Staff is reporting that patient has shared that she is feeling depressed along with having suicidal ideation. When stable patient will to her previous living situation with outpatient follow-up 05/15/2017 Patient will be stablized and started on medication to address her mood Nurse(s) Present: OLIVIA Dawkins Nurse(s) Input: 05/17/2017; per RN although patient is eating meals and taking her medication, she continues to report self harm thoughts Patient is anxious, and entitled with an agitated mood Psychiatric Counselors Present: ROSALES Carrera Psych Therapist Input: 05/17/2017; patient is redirected with positive thoughts, given sober living package and encouraged to call; patient is also provided a list of NA meetings 05/15/17; Patient is new and will be oriented with outpatient services/treatment Group Spec/RT/OT/OREILLY Present: Iván Bautista, OT Group Spec/RT/OT/OREILLY Input: 05/17/2017 Patient has refused to attend groups 05/15/17; patient is new and wuill be oriented with groups and activities Documentation Scribe: ROSALES Carrera Teaching Recipient: Julia Del Valle May 17, 2017 13:52
[2017-05-17 18:31] VITALS: BP 114/61; PULSE 112; RESP 20; TEMP 98.5; O2SAT 93
[2017-05-17] MEDS: REMOVE OLD NICODERM (NICOTINE) PATCH T-DERMAL SCH (21:00)
[2017-05-17] MEDS: traZODone HCL 100 MG TAB PO SCH (21:38)
[2017-05-17] MEDS: DULoxetine HCl DR 30 MG CAP PO SCH (21:38)
[2017-05-18 06:02] VITALS: BP 104/63; PULSE 103; RESP 18; TEMP 97.5; O2SAT 96
[2017-05-18] MEDS: INSULIN ASPART SUPPLEMENTAL SCALE SQ SCH ×4 (07:21→20:12)
[2017-05-18] MEDS: NICOTINE 21 MG/24 HR PATCH T-DERMAL SCH (08:13)
[2017-05-18 09:00] VITALS: BP 104/54; PULSE 93
[2017-05-18] MEDS: LISINOPRIL 10 MG TAB PO SCH ×2 (09:00→20:12)
[2017-05-18] MEDS: DULoxetine HCl DR 30 MG CAP PO SCH ×2 (09:05→20:13)
[2017-05-18] MEDS: GABAPENTIN 300 MG CAP PO SCH ×3 (09:05→17:22)
[2017-05-18] MEDS: INSULIN ASPAR PROT 70/30 1,000 UNITS/10 ML VIAL SQ SCH ×2 (09:22→20:13)
--- NOTE | 2017-05-18 12:37 | HHI.PYPN ---
Subjective Remarks Patient seen for follow-up, chart reviewed. As reported patient's, cooperative , slept well. Patient was seen lying in hospital bed states that her mood has been "so-so" states that he is tolerating her medications well reported feeling less depressed and no longer having suicidal ideations today. Patient still states feeling sad due to her recent loss of a close friend who looks forward to engaging in outpatient rehabilitation as well as outpatient follow-up upon discharge. Review of Systems Except as stated in HPI: all other systems reviewed are Neg Mental Status Examination Appearance: Appropriate Consciousness: Alert Orientation: x4 Motor Activity: Normal gait Speech: Unremarkable Language: Adequate Fund of Knowledge: Adequate Attention and Concentration: Adequate Memory: Unremarkable Mood: Sad Affect: Sad Thought Process & Associations: Intact Thought Content: Appropriate Hallucination Type: None Delusion Type: None Suicidal Ideation: No Suicidal Plan: No Suicidal Intention: No Homicidal Ideation: No Homicidal Plan: No Homicidal Intention: No Insight: Fair Judgment: Impulsive Results Vitals/IOs Vital Signs Date Time Temp Pulse Resp B/P (MAP) Pulse Ox O2 Delivery O2 Flow Rate FiO2 05/18/17 09:00 93 104/54 (71) 05/18/17 06:02 97.5 18 96 Intake and Output 05/18/17 05/18/17 05/19/17 08:00 16:00 00:00 Intake Total 240 ml 480 ml Balance 240 ml 480 ml Assessment & Plan Problem List: (1) Adjustment disorder with depressed mood ICD Codes: F43.21 - Adjustment disorder with depressed mood Assessment & Plan Patient appears to be having an improvement of mood, no longer endorsing suicidal ideations and appears to be more future oriented. The patient remains consistency with stability of mood patient to be discharged tomorrow. Continue current care for now. Discharge planning in progress Justification for Cont. Inpt. Naidu further decompensation event lower level of care. Discharge Planning Patient is discharged to a friend's residence with psychiatrically stable. Mariano Cárdenas MD May 18, 2017 12:37
[2017-05-18] MEDS: IBUPROFEN 600 MG TAB PO SCH (17:03)
[2017-05-18 18:00] VITALS: BP 119/68; PULSE 95; RESP 19; TEMP 98.2; O2SAT 97
[2017-05-18] MEDS: traZODone HCL 100 MG TAB PO SCH (20:12)
[2017-05-18] MEDS: MAGNESIUM HYDROXIDE SUSP 30 ML CUP PO PRN (20:12)
[2017-05-18] MEDS: REMOVE OLD NICODERM (NICOTINE) PATCH T-DERMAL SCH (20:14)
[2017-05-19] MEDS: ACETAMINOPHEN 325 MG TAB PO PRN (02:17)
[2017-05-19 06:15] VITALS: BP 114/70; PULSE 100; RESP 18; TEMP 98.5
[2017-05-19] MEDS: INSULIN ASPART SUPPLEMENTAL SCALE SQ SCH ×2 (08:00→11:16)
[2017-05-19] MEDS: DULoxetine HCl DR 30 MG CAP PO SCH (08:26)
[2017-05-19] MEDS: GABAPENTIN 300 MG CAP PO SCH ×2 (08:27→12:30)
[2017-05-19] MEDS: LISINOPRIL 10 MG TAB PO SCH (08:27)
[2017-05-19] MEDS: INSULIN ASPAR PROT 70/30 1,000 UNITS/10 ML VIAL SQ SCH (08:58)
[2017-05-19] MEDS: NICOTINE 21 MG/24 HR PATCH T-DERMAL SCH (09:00)
[2017-05-19] MEDS ORDERED: GABA600T PO (11:05)
[2017-05-19] MEDS ORDERED: NOVOINJ2 SQ (11:05)
[2017-05-19] MEDS ORDERED: TRAZ100T10 PO (11:05)
[2017-05-19] MEDS ORDERED: DULO1CAP2 PO (11:05)
[2017-05-19] MEDS ORDERED: LISI10TA3 PO (11:05)
--- NOTE | 2017-05-19 16:02 | HHI.DS ---
Psychiatry Discharge Summary Inpatient Psychiatric care?: Yes Advance Directive: No Reason Not Provided: DOESNT HAVE ONE Mental Health AdvanceDirective: No Health Care Proxy: No Admission Admission Date May 13, 2017 at 09:07 Admission Diagnosis: (1) Adjustment disorder with depressed mood ICD Code: F43.21 - Adjustment disorder with depressed mood Brief History The patient is a 37-year-old woman, homeless, single, unemployed, with psychiatric history bipolar disorder, previous psychotic hospitalizations, cocaine and cannabis use disorder, poor compliant with psychotropics, no outpatient care, with medical history hypertension and diabetes, who presents to the emergency department initially requesting to receive assistance on detox, but posteriorly stated that she wanted to kill herself and was Dietz acted by the ER physician. Patient's blood sugar was 325. After interviewing the patient, patient states that she does not check her blood sugar and that she just wants to be clean of crack cocaine. Patient denies fever, chills, chest pain, cough, shortness of breath, nausea, vomiting, diarrhea. Patient has a history of diabetes and asthma. Patient is not been using her medications or checking her blood sugar. Vital signs- stable. Mild tachycardia. Labs ordered to evaluate mild tachycardia and decreased oxygen saturation. Note that patient was reluctant to have any IV or labs drawn because of previous difficulty.Patient adamantly denies chest pain, shortness of breath, or pain anywhere else. Patient does have asthma may also have obstructive sleep apnea which may be cm to her tachycardia and decreased oxygenation. On psychiatric evaluation today patient is irritable, very disheveled and malodorous, and is states that she is tired to be homeless and a drug addict and she wants to . The patient says that she wants to kill herself jumping into traffic or jumping off a bridge today. During the evaluation the patient is tearful, she endorses depression, sense of worthlessness, helplessness, hopelessness, lack of motivation to live, very poor social and family support, she says that she has no reason to live anymore and "my only way out is stoping drugs and is starting my medications for bipolar disorder, please help me". Patient reports daily use of cocaine and cannabis, she denies use of alcohol. She is oriented 3, no fluctuation of consciousness, no gross cognitive impairment present. Tobacco Use In Past 30 Days: 5 or More Cigarettes/Day Alcohol Use: Never Hospital Course The patient is a 37-year-old woman, homeless, single, unemployed, with psychiatric history bipolar disorder, previous psychotic hospitalizations, cocaine and cannabis use disorder, poor compliant with psychotropics, no outpatient care, with medical history hypertension and diabetes, who presents to the emergency department initially requesting to receive assistance on detox, but posteriorly stated that she wanted to kill herself and was Dietz acted by the ER physician and subsequently transferred to the inpatient psychiatry for evaluation and management. Patient was started on duloxetine 20mg PO BID and increased to 30mg PO BID, trazodone 100mg PO HS, and continued on gabapentin 600mg PO TID. Patient initially was endorsing feeling depressed with suicidal ideations. As medications were titrated up patient continued to report less intense and less suicidal ideations and mood began to improve which patient became more hopeful and future-oriented. Patient continue with treatment and was noted to have improvement of mood, was noted to be cooperative with staff as well as improvement in personal hygiene. Patient was noted to have improvement of insight and judgment. Patient was adherent to medication regimen and recommendations as per primary medical team. Upon discharge patient stated feeling good, stated feeling okay with returning back to her friends residence, was calm and cooperative with staff. She agreed to continuing medical recommendations, treatment and attend outpatient follow up appointments for continuity of care and engage in rehabilitation program for substance use. Patient denies SI, HI, AVH or delusions. Supportive psychotherapy provided and counseled on abstinence from substance use. Patient advised to call 911 or return back to the ED in case of any emergency. Patient agrees with plan. Results Blood Pressure 114 / 70 Vital Signs Date Time Temp Pulse Resp B/P (MAP) Pulse Ox O2 Delivery O2 Flow Rate FiO2 05/19/17 06:15 98.5 100 18 114/70 (85) 05/18/17 18:00 97 Laboratory Results Test 05/14/17 19:19 05/15/17 08:06 Hemoglobin A1c 8.0 % (4.3-6.0) Cholesterol Level 132 MG/DL (120-200) HDL Cholesterol 26.7 MG/DL (40.0-60.0) LDL Cholesterol 60 MG/DL (0-99) Triglycerides Level 226 MG/DL (42-150) Summary of Procedures None Imaging Last Impressions Chest X-Ray 05/13/17 0830 Signed Impressions: Service Date/Time: Saturday, May 13, 2017 08:37 - CONCLUSION: No acute disease. Jabari Disla MD Renal Ultrasound 05/13/17 0000 Signed Impressions: Service Date/Time: Saturday, May 13, 2017 15:16 - CONCLUSION: 1. Limited examination due to patient's body habitus. 2. Unremarkable sonographic appearance of the kidneys. No evidence for obstructive uropathy. Denny Araujo MD Pending results at discharge: No Medications # of Antipsychotic meds at D/C: 0 Approp Antipsych med options 1 - Minimum of three failed multiple trials of monotherapy. 2 - Documented plan to taper to monotherapy due to previous use of multiple meds OR cross-taper in progress at D/C. 3 - Documentation of augmentation of Clozapine. 4 - Justification other than those listed in allowable values 1-3, document here : Discharge Discharge Date: May 19, 2017 Discharge Diagnosis: (1) Adjustment disorder with depressed mood ICD Code: F43.21 - Adjustment disorder with depressed mood Pt Condition on Discharge: Stable Discharge Disposition: Discharge Home Discharge Instructions Diet Instructions: Diabetic Diet Activities you can perform: Weight Bearing as Berny Scheduled Appointment: Jose Alfredo Duran Appointment Date: May 23, 2017 Appointment Time: 07:45am Discharge Time > 30 minutes Mental Status Examination Appearance: Appropriate Consciousness: Alert Orientation: x4 Motor Activity: Normal gait Speech: Unremarkable Language: Adequate Fund of Knowledge: Adequate Attention and Concentration: Adequate Memory: Unremarkable Mood: Appropriate Affect: Appropriate Thought Process & Associations: Intact Thought Content: Appropriate Hallucination Type: None Delusion Type: None Suicidal Ideation: No Suicidal Plan: No Suicidal Intention: No Homicidal Ideation: No Homicidal Plan: No Homicidal Intention: No Insight: Fair Judgment: Impulsive Discharge/Advance Care Plan Health Problems: (1) Adjustment disorder with depressed mood Goals to promote your health * To prevent worsening of your condition and complications * To maintain your health at the optimal level Directions to meet your goals Take your medications as prescribed Follow your dietary instruction Follow activity as directed Keep your appointments as scheduled Take your immunizations and boosters as scheduled If your symptoms worsen call your PCP, if no PCP go to Urgent Care Center or Emergency Room For 19/12 questions related to your inpatient stay or results of tests pending at discharge, please contact Dr. Mariano Cárdenas at Smoking is Dangerous to Your Health. Avoid second hand smoking Mariano Cárdenas MD May 19, 2017 16:02
== END 2017-05-19 13:35 | disposition home or self-care (01) | DRG 881 ==
LOC: NEPD 03:44 → NEDA 09:07 → H4EA 12:56 → H250 05-17 22:15
PROVIDERS: ADMIT Student in an Organized Health Care Education/Training Program; ATTEND Student in an Organized Health Care Education/Training Program
DX: F43.21 Adjustment disorder with depressed mood (principal); N17.9 Acute kidney failure, unspecified; R45.851 Suicidal ideations; E11.65 Type 2 diabetes mellitus with hyperglycemia; Z68.42 Body mass index [BMI] 45.0-49.9, adult; F31.9 Bipolar disorder, unspecified; J45.909 Unspecified asthma, uncomplicated; M19.90 Unspecified osteoarthritis, unspecified site; F41.9 Anxiety disorder, unspecified; E78.5 Hyperlipidemia, unspecified; I10 Essential (primary) hypertension; F17.210 Nicotine dependence, cigarettes, uncomplicated; R00.0 Tachycardia, unspecified; F14.10 Cocaine abuse, uncomplicated; G89.29 Other chronic pain; E66.9 Obesity, unspecified; F12.90 Cannabis use, unspecified, uncomplicated; Z79.84 Long term (current) use of oral hypoglycemic drugs; Z91.5 Personal history of self-harm; Z91.14 Patient's other noncompliance with medication regimen; Z59.0 Homelessness
CPT/HCPCS: 71010; 76775; 80048; 80061; 80307; 81001; 82570; 82948; 83036; 84156; 84300; 84484; 84703; 85025; 85379; 87205; 93005; 99285; J1815

== ENCOUNTER 2017-05-25 12:48 | Emergency (ER) | payer MEDICARE, OTHER ==
[~2017-05-25 12:48] MED LIST changes: +DULO1CAP2 PO; +GABA600T PO; +LISI10TA3 PO; -METF1000 PO; +TRAZ100T10 PO
[2017-05-25 12:50] VITALS: BP 122/85; PULSE 111; RESP 16; TEMP 98.9; O2SAT 97
--- NOTE | 2017-05-25 14:16 | RADRPT ---
EXAM DATE/TIME: 05/25/2017 13:53 [facility] COMPARISON: No previous studies available for comparison. INDICATIONS : Constipation. MEDICAL HISTORY : Hypertension. Diabetes mellitus type II. Smoker. SURGICAL HISTORY : None. ENCOUNTER: Initial ACUITY: 1 week PAIN SCORE: 0/10 LOCATION: Abdomen. FINDINGS: Supine view of the abdomen was performed. The abdominal bowel gas pattern is normal. No abnormal ma sses, calcifications, or organomegaly is seen. The osseous structures are unremarkable. CONCLUSION: Normal examination for a patient of this age. Rolan Gonzalez MD on May 25, 2017 at 14:11 Board Certified Radiologist. This report was verified electronically.
[2017-05-25 15:15] VITALS: BP 134/93; PULSE 90; RESP 18; O2SAT 98
[2017-05-25] MEDS ORDERED: KETOROLAC TROMETHAMINE 60 MG/2 ML (IM) VIAL IM ONE (15:15)
--- NOTE | 2017-05-25 15:56 | PD ---
HPI Chief Complaint: Medical Clearance Time Seen by Provider: 14:17 Travel History International Travel<30 days: No Contact w/Intl Traveler<30days: No Traveled to known affect area: No History of Present Illness HPI 37-year-old female came to the emergency room with history of lower back pain that has been going on for past couple days. Patient does have history of lower back pain. No history of fall or trauma to the back. She also complains of constipation for past 1 week. Yesterday she tried to manually disimpact herself but did not end up clearing up all her bowel movement. She says she has been taking [id number] medication for her backache and nothing has been helping. Patient was tachycardic in triage. She seemed pretty agitated as she is telling me her history. Back pain is worse when she goes to stand up from lying position. She says she has to crawl to go to the bathroom in the middle of the night the cause of the back pain she was unable to stand straight. [facility] Past Medical History Narrative Medical List of her past medical, surgical, social and family history is reviewed from the nursing note. Arthritis: Yes (WRISTS, BACK KNEES) Asthma: No Autoimmune Disease: No Blood Disorders: No Bipolar Disorder: Yes Anxiety: Yes Depression: Yes Heart Rhythm Problems: No Cancer: No Cardiovascular Problems: Yes High Cholesterol: Yes Chemotherapy: No Chest Pain: No Congestive Heart Failure: No COPD: No Cerebrovascular Accident: No Diabetes: Yes Patient Takes Glucophage: Yes Diminished Hearing: No Endocrine: Yes Gastrointestinal Disorders: No GERD: No Glaucoma: No Genitourinary: No Headaches: Yes Hepatitis: No Hiatal Hernia: No Hypertension: Yes Immune Disorder: No Implanted Vascular Access Dvce: No Kidney Stones: No Musculoskeletal: Yes Neurologic: Yes Psychiatric: Yes (BIPOLAR) Reproductive: No Respiratory: Yes Immunizations Current: Yes Migraines: No Myocardial Infarction: No Radiation Therapy: No Renal Failure: No Seizures: No Sickle Cell Disease: No Sleep Apnea: No Thyroid Disease: No Ulcer: No ?: Not LMP: 05/19/17 : 0 Past Surgical History Abdominal Surgery: No AICD: No Appendectomy: No Arteriovenous Shunt: No Cardiac Surgery: No Cholecystectomy: No Ear Surgery: No Endocrine Surgery: No Eye Surgery: No Genitourinary Surgery: No Gynecologic Surgery: No Insulin Pump: No Joint Replacement: No Neurologic Surgery: No Oral Surgery: No Pacemaker: No Thoracic Surgery: No Other Surgery: Yes Social History Alcohol Use: Yes ("[employer]") Tobacco Use: Yes (4 cigarettes) Substance Use: Yes (CRACK COCAINE USED YESTERDAY) Allergies-Medications (Allergen,Severity, Reaction): Coded Allergies: No Known Allergies (Verified Allergy, Unknown, 05/25/17) Comments No known drug allergies. Reported Meds & Prescriptions Reported Meds & Active Scripts Active Ibuprofen 600 Mg Tab 600 Mg PO Q6H PRN Miralax Powder (Polyethylene Glycol 3350 Powder) 17 Gm Powd 17 Gm PO DAILY Mix and dissolve one measuring cap-ful (17 grams) in water or juice. Trazodone (Trazodone HCl) 100 Mg Tablet 100 Mg PO HS Duloxetine DR (Duloxetine HCl) 30 Mg Capdr 30 Mg PO BID 30 Days Gabapentin 600 Mg Tab 600 Mg PO TID Lisinopril 10 Mg Tab 10 Mg PO BID 30 Days Novolog Mix 70-30 FlexPen Inj (Insulin Aspart Protam-Asp 70-30 Inj) 300 Unit/3 Ml Pen 60 Units SQ BID 30 Days Narrative Medication List of her home medications reviewed from the nursing note. Review of Systems Except as stated in HPI: all other systems reviewed are Neg Gastrointestinal: Positive: Constipation Musculoskeletal: Positive: Pain Physical Exam Narrative GENERAL: Awake, alert, morbidly obese, agitated SKIN: Focused skin assessment warm/dry. HEAD: Atraumatic. Normocephalic. EYES: Pupils equal and round. No scleral icterus. No injection or drainage. ENT: No nasal bleeding or discharge. Mucous membranes pink and moist. NECK: Trachea midline. No JVD. CARDIOVASCULAR: Regular rate and rhythm. No murmur appreciated. RESPIRATORY: No accessory muscle use. Clear to auscultation. Breath sounds equal bilaterally. GASTROINTESTINAL: Abdomen soft, non-tender, nondistended. Hepatic and splenic margins not palpable. MUSCULOSKELETAL: No obvious deformities. No clubbing. No cyanosis. No edema. NEUROLOGICAL: Awake and alert. No obvious cranial nerve deficits. Motor grossly within normal limits. Normal speech. PSYCHIATRIC: Appropriate mood and affect; insight and judgment normal. Data Data Last Documented VS Vital Signs Date Time Temp Pulse Resp B/P (MAP) Pulse Ox O2 Delivery O2 Flow Rate FiO2 05/25/17 16:56 89 18 123/78 (93) 98 05/25/17 15:15 Room Air 05/25/17 12:50 98.9 Orders Orders Abdomen, Kub Only (05/25/17 ) Enema (05/25/17 15:15) Ketorolac Inj (Toradol Inj) (05/25/17 15:15) Ed Urine Pregnancytest Poc (05/25/17 15:56) Ed Discharge Order (05/25/17 17:12) MDM Medical Decision Making Medical Screen Exam Complete: Yes Emergency Medical Condition: Yes Medical Record Reviewed: Yes Differential Diagnosis Constipation, acute on chronic lower back pain Narrative Course 3:56 PM a soapsuds enema has been ordered for the patient. I'm giving her IM Toradol for pain relief since in my opinion giving opiates would worsen her constipation/obstipation problem. I tried to explain this to the patient and she is not happy with this. However as a medical decision this would be the best for her at this point. 4:02 PM I was told by the nurse that patient has refused any enema at this point. She did accept the Toradol. At this point I do not see any reason to keep her in the emergency department. She'll be discharged. 4:04 PM patient just changed her mind. She has told the nurse that she'll take the enema. Repeat vital signs show that the heart rate is 90 bpm at this point. 4:45 PM I was told that patient had good result from the enema. She'll be discharged home. Procedures EKG Prior to Arrival: No Diagnosis Primary Impression: Constipation Qualified Codes: K59.00 - Constipation, unspecified Additional Impression: Acute exacerbation of chronic low back pain Referrals: Primary Care Physician Additional Instructions: Take the medication as per the prescription direction. Follow-up with your primary care. Drink more fluid and high fiber diet. Med/Other Pt SpecificInfo: Prescription(s) given Scripts Ibuprofen (Ibuprofen) 600 Mg Tab 600 MG PO Q6H Y for Pain/Inflammation, #40 TAB 0 Refills Prov: Marco A Belle MD 05/25/17 Polyethylene Glycol 3350 Powder (Miralax Powder) 17 Gm Powd 17 GM PO DAILY for Constipation, #1 CAN 0 Refills Mix and dissolve one measuring cap-ful (17 grams) in water or juice. Prov: Marco A Belle MD 05/25/17 Disposition: 01 DISCHARGE HOME Condition: Stable Marco A Belle MD May 25, 2017 15:56
[2017-05-25] MEDS ORDERED: IBUP-232 PO (16:03)
[2017-05-25] MEDS ORDERED: MIRA3350 PO (16:03)
[2017-05-25 16:56] VITALS: BP 123/78; RESP 18
== END 2017-05-25 17:19 | disposition home or self-care (01) ==
LOC: NEPD 12:48
DX: K59.00 Constipation, unspecified (principal); M54.5 Low back pain; G89.29 Other chronic pain; F17.210 Nicotine dependence, cigarettes, uncomplicated; F14.90 Cocaine use, unspecified, uncomplicated; E11.9 Type 2 diabetes mellitus without complications; F31.9 Bipolar disorder, unspecified; Z79.4 Long term (current) use of insulin
CPT/HCPCS: 74000; 96372; 99284; J1885

== ENCOUNTER 2017-06-03 12:23 | Emergency (ER) | payer MEDICARE, OTHER ==
[~2017-06-03 12:23] MED LIST changes: +IBUP-232 PO; +MIRA3350 PO
[2017-06-03 12:25] VITALS: BP 150/98; PULSE 93; RESP 16; TEMP 98.2; O2SAT 97
--- NOTE | 2017-06-03 12:47 | PD ---
HPI Chief Complaint: Fall Time Seen by Provider: 12:32 Travel History International Travel<30 days: No Contact w/Intl Traveler<30days: No Traveled to known affect area: No History of Present Illness HPI The patient was seen and examined in the presence of the nurse. This patient complains of injuries suffered during a fall. She landed on a right outstretched wrist. Her chief complaint is right wrist pain. She also complains of some right low back discomfort. No head injury. Wrist pain is worse with movement. Duration one day PFSH Past Medical History Arthritis: Yes (WRISTS, BACK KNEES) Asthma: No Autoimmune Disease: No Blood Disorders: No Bipolar Disorder: Yes Anxiety: Yes Depression: Yes Heart Rhythm Problems: No Cancer: No Cardiovascular Problems: Yes High Cholesterol: Yes Chemotherapy: No Chest Pain: No Congestive Heart Failure: No COPD: No Cerebrovascular Accident: No Diabetes: Yes Patient Takes Glucophage: Yes Diminished Hearing: No Endocrine: Yes Gastrointestinal Disorders: No GERD: No Glaucoma: No Genitourinary: No Headaches: Yes Hepatitis: No Hiatal Hernia: No Hypertension: Yes Immune Disorder: No Implanted Vascular Access Dvce: No Kidney Stones: No Musculoskeletal: Yes Neurologic: Yes Psychiatric: Yes (BIPOLAR) Reproductive: No Respiratory: Yes Immunizations Current: Yes Migraines: No Myocardial Infarction: No Radiation Therapy: No Renal Failure: No Seizures: No Sickle Cell Disease: No Sleep Apnea: No Thyroid Disease: No Ulcer: No ?: Not : 0 Past Surgical History Abdominal Surgery: No AICD: No Appendectomy: No Arteriovenous Shunt: No Cardiac Surgery: No Cholecystectomy: No Ear Surgery: No Endocrine Surgery: No Eye Surgery: No Genitourinary Surgery: No Gynecologic Surgery: No Insulin Pump: No Joint Replacement: No Neurologic Surgery: No Oral Surgery: No Pacemaker: No Thoracic Surgery: No Other Surgery: Yes Social History Alcohol Use: Yes ("EV[employer]") Tobacco Use: Yes (4 cigarettes) Substance Use: Yes (CRACK COCAINE USED YESTERDAY) Allergies-Medications (Allergen,Severity, Reaction): Coded Allergies: No Known Allergies (Verified Allergy, Unknown, 05/25/17) Reported Meds & Prescriptions Reported Meds & Active Scripts Active Tylenol-Codeine #3 (Acetaminophen-Codeine) 300-30 mg Tab 1 Tab PO Q6HR PRN Miralax Powder (Polyethylene Glycol 3350 Powder) 17 Gm Powd 17 Gm PO DAILY Mix and dissolve one measuring cap-ful (17 grams) in water or juice. Trazodone (Trazodone HCl) 100 Mg Tablet 100 Mg PO HS Duloxetine DR (Duloxetine HCl) 30 Mg Capdr 30 Mg PO BID 30 Days Gabapentin 600 Mg Tab 600 Mg PO TID Lisinopril 10 Mg Tab 10 Mg PO BID 30 Days Novolog Mix 70-30 FlexPen Inj (Insulin Aspart Protam-Asp 70-30 Inj) 300 Unit/3 Ml Pen 60 Units SQ BID 30 Days Review of Systems General / Constitutional: No: Fever HENT: No: Headaches Cardiovascular: No: Chest Pain or Discomfort Respiratory: No: Cough Physical Exam Narrative GASTROINTESTINAL: Abdomen soft, non-tender, nondistended. Positive bowel sounds. No hepato-splenomegaly, or palpable masses. No guarding. SKIN: Focused skin assessment reveals no rash or ulcers. Skin is warm and dry. Palpation shows no induration or nodules. No bony tenderness of the legs Right wrist exam: Has some tenderness there. No open wound or deformity. Neurovascularly intact right arm Back exam is negative for tenderness or bruising or deformity Data Data Last Documented VS Vital Signs Date Time Temp Pulse Resp B/P (MAP) Pulse Ox O2 Delivery O2 Flow Rate FiO2 06/03/17 12:25 98.2 93 16 150/98 (115) 97 Orders Orders Wrist, Complete ([id number]) (06/03/17 ) [facility] [place] Medical Decision Making Medical Screen Exam Complete: Yes Emergency Medical Condition: Yes Medical Record Reviewed: Yes Differential Diagnosis Wrist fracture, contusion, dislocation Narrative Course I have reviewed the patient's electronic medical record. I reviewed her right wrist x-rays which show some subchondral cysts but no acute fracture or dislocation Patient says she is having pain and I wrote a dozen Tylenol 3 to use as needed Warned about potential sedation and constipation The patient was advised to follow up with their physician and return if they worsen. Diagnosis Primary Impression: Soft tissue injury of right wrist Qualified Codes: S69.91XA - Unspecified injury of right wrist, hand and finger (s), initial encounter Additional Instructions: The patient was advised to follow up with their physician and return if they worsen. The patient was warned about potential sedation for the medications they will receive on prescription. Med/Other Pt SpecificInfo: Prescription(s) given Scripts Acetaminophen-Codeine (Tylenol-Codeine #3) 300-30 mg Tab 1 TAB PO Q6HR Y for PAIN, #12 TAB 0 Refills Prov: Kem Parsons MD 06/03/17 Disposition: 01 DISCHARGE HOME Condition: Stable Kem Parsons MD Jun 03, 2017 12:47
--- NOTE | 2017-06-03 13:34 | RADRPT ---
EXAM DATE/TIME: 06/03/2017 12:55 [facility] COMPARISON: No previous studies available for comparison. INDICATIONS : Right wrist pain post fall today MEDICAL HISTORY : None. SURGICAL HISTORY : None. ENCOUNTER: Initial ACUITY: 1 day PAIN SCORE: 4/10 LOCATION: Right entire wrist FINDINGS: Subchondral cysts are noted involving the lunate which appears to be fused with the triquetrum as wel l as the ulnar aspect of the distal radius. There is joint space narrowing between the radius and elisabeth ate. Small subchondral cyst is also noted involving the distal pole of the scaphoid. No acute fractur e or dislocation is noted. CONCLUSION: 1. Subchondral cysts involving the lunate, ulnar aspect of the distal radius and distal pole of the s caphoid with significant joint space narrowing involving the space between the radius and lunate. 2. Fusion of the lunate and triquetrum. 3. No acute fracture or dislocation. Jabari Disla MD on June 03, 2017 at 13:28 Board Certified Radiologist. This report was verified electronically.
[2017-06-03] MEDS ORDERED: TYLETAB34 PO (15:55)
== END 2017-06-03 16:05 | disposition home or self-care (01) ==
LOC: NEPD 12:23
DX: S69.91XA Unspecified injury of right wrist, hand and finger(s), initial encounter (principal); M54.5 Low back pain; E11.9 Type 2 diabetes mellitus without complications; I10 Essential (primary) hypertension; F31.9 Bipolar disorder, unspecified; F41.9 Anxiety disorder, unspecified; E78.00 Pure hypercholesterolemia, unspecified; M19.039 Primary osteoarthritis, unspecified wrist; W19.XXXA Unspecified fall, initial encounter
CPT/HCPCS: 73110; 99283

== ENCOUNTER 2017-06-05 16:04 | Emergency (ER) | payer MEDICARE, OTHER ==
[~2017-06-05 16:04] MED LIST changes: -IBUP-232 PO; +TYLETAB34 PO
[2017-06-05 16:05] VITALS: BP_SYST 178; BP_DIAS 101; BP_DIAS 11; BP_DIAS 63; PULSE 96; RESP 14; TEMP 98; TEMP 98.2; O2SAT 98
--- NOTE | 2017-06-05 19:01 | PD ---
HPI Chief Complaint: Skin Problem Time Seen by Provider: 16:14 Travel History International Travel<30 days: No Contact w/Intl Traveler<30days: No Traveled to known affect area: No History of Present Illness HPI Patient is a 37-year-old female presenting to the emergency department for evaluation of a boil on her "lady parts". She states she noticed this this morning when she was taking a shower. She reports that her whole body hurts because of this. She denies any fever, chills, nausea, vomiting, abdominal pain , chest pain or shortness of breath. Her pain is a an 8 out of 10 and she states it is sore and aching. She has not attempted any medications to alleviate the pain prior to arrival. Onset was gradual. PFSH Past Medical History Arthritis: Yes (WRISTS, BACK KNEES) Asthma: No Autoimmune Disease: No Blood Disorders: No Bipolar Disorder: Yes Anxiety: Yes Depression: Yes Heart Rhythm Problems: No Cancer: No Cardiovascular Problems: Yes High Cholesterol: Yes Chemotherapy: No Chest Pain: No Congestive Heart Failure: No COPD: No Cerebrovascular Accident: No Diabetes: Yes Diminished Hearing: No Endocrine: Yes Gastrointestinal Disorders: No GERD: No Glaucoma: No Genitourinary: No Headaches: Yes Hepatitis: No Hiatal Hernia: No Hypertension: Yes Immune Disorder: No Implanted Vascular Access Dvce: No Kidney Stones: No Musculoskeletal: Yes Neurologic: Yes Psychiatric: Yes (BIPOLAR) Reproductive: No Respiratory: Yes Immunizations Current: Yes Migraines: No Myocardial Infarction: No Radiation Therapy: No Renal Failure: No Seizures: No Sickle Cell Disease: No Sleep Apnea: No Thyroid Disease: No Ulcer: No ?: Unknown : 0 Past Surgical History Abdominal Surgery: No AICD: No Appendectomy: No Arteriovenous Shunt: No Cardiac Surgery: No Cholecystectomy: No Ear Surgery: No Endocrine Surgery: No Eye Surgery: No Genitourinary Surgery: No Gynecologic Surgery: No Insulin Pump: No Joint Replacement: No Neurologic Surgery: No Oral Surgery: No Pacemaker: No Thoracic Surgery: No Other Surgery: Yes Social History Alcohol Use: Yes ("EV[employer]EL") Tobacco Use: Yes (4 cigarettes) Substance Use: Yes (CRACK COCAINE USED YESTERDAY) Allergies-Medications (Allergen,Severity, Reaction): Coded Allergies: No Known Allergies (Verified Allergy, Unknown, 05/25/17) Reported Meds & Prescriptions Reported Meds & Active Scripts Active Tylenol-Codeine #3 (Acetaminophen-Codeine) 300-30 mg Tab 1 Tab PO Q6HR PRN Miralax Powder (Polyethylene Glycol 3350 Powder) 17 Gm Powd 17 Gm PO DAILY Mix and dissolve one measuring cap-ful (17 grams) in water or juice. Trazodone (Trazodone HCl) 100 Mg Tablet 100 Mg PO HS Duloxetine DR (Duloxetine HCl) 30 Mg Capdr 30 Mg PO BID 30 Days Gabapentin 600 Mg Tab 600 Mg PO TID Lisinopril 10 Mg Tab 10 Mg PO BID 30 Days Novolog Mix 70-30 FlexPen Inj (Insulin Aspart Protam-Asp 70-30 Inj) 300 Unit/3 Ml Pen 60 Units SQ BID 30 Days Physical Exam Narrative GENERAL: Obese, well-developed, alert female. In no acute distress. SKIN: Warm and dry. HEAD: Normocephalic. EYES: No scleral icterus. No injection or drainage. NECK: Supple, trachea midline. No JVD or lymphadenopathy. CARDIOVASCULAR: Regular rate RESPIRATORY: No accessory muscle use. Data Data Last Documented VS Vital Signs Date Time Temp Pulse Resp B/P (MAP) Pulse Ox O2 Delivery O2 Flow Rate FiO2 06/05/17 16:05 98.0 96 14 178/101 (126) 98 [facility] Medical Decision Making Medical Screen Exam Complete: Yes Emergency Medical Condition: Yes Interpretation(s) Vital Signs Date Time Temp Pulse Resp B/P (MAP) Pulse Ox O2 Delivery O2 Flow Rate FiO2 06/05/17 16:05 98.0 96 14 178/101 (126) 98 Differential Diagnosis Abscess versus cellulitis versus tinea versus other Narrative Course Patient is an obese 37-year-old female presenting to emergency for evaluation of what she describes as a boil to her pubic area. Vital signs are stable, patient is awaiting bed placement. Patient was called to be bedded, she was not in the emergency department any longer. Diagnosis Primary Impression: Left against medical advice Nereyda Galarza Jun 05, 2017 19:01
== END 2017-06-05 20:53 | disposition left against medical advice (07) ==
LOC: NED 16:04
DX: N76.4 Abscess of vulva (principal); E66.9 Obesity, unspecified; F31.9 Bipolar disorder, unspecified; F41.9 Anxiety disorder, unspecified; E78.00 Pure hypercholesterolemia, unspecified; E11.9 Type 2 diabetes mellitus without complications; I10 Essential (primary) hypertension; M19.039 Primary osteoarthritis, unspecified wrist; M47.9 Spondylosis, unspecified
CPT/HCPCS: 99281

== ENCOUNTER 2017-06-08 13:41 | Emergency (ER) | payer MEDICARE, OTHER ==
[~2017-06-08] VITALS: Ht 162.6 cm; Wt 119.5 kg
[2017-06-08 13:41] VITALS: BP 137/91; PULSE 110; RESP 20; TEMP 99.6; O2SAT 95
[2017-06-08] MEDS ORDERED: ASPI-183 PO (14:16)
[2017-06-08] MEDS ORDERED: MELO15TA20 PO (14:41)
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
== END 2017-06-08 14:59 | disposition home or self-care (01) ==
LOC: NEPK 13:41
DX: S80.00XA Contusion of unspecified knee, initial encounter (principal); S29.012A Strain of muscle and tendon of back wall of thorax, initial encounter; V18.9XXA Unspecified pedal cyclist injured in noncollision transport accident in traffic accident, initial encounter; Y93.55 Activity, bike riding; E11.9 Type 2 diabetes mellitus without complications; E78.00 Pure hypercholesterolemia, unspecified; I10 Essential (primary) hypertension; F17.210 Nicotine dependence, cigarettes, uncomplicated; F14.90 Cocaine use, unspecified, uncomplicated
CPT/HCPCS: 99283

== ENCOUNTER 2017-06-20 02:55 | Emergency (ER) | payer MEDICARE, OTHER ==
[~2017-06-20] VITALS: Ht 162.6 cm; Wt 110.0 kg
[~2017-06-20 02:55] MED LIST changes: +ASPI-183 PO; +MELO15TA20 PO; -MIRA3350 PO
[2017-06-20 03:08] VITALS: BP 126/86; PULSE 84; RESP 15; TEMP 98.8; O2SAT 97
--- NOTE | 2017-06-20 03:15 | PD ---
HPI Chief Complaint: Psychiatric Symptoms Time Seen by Provider: 03:13 Travel History International Travel<30 days: No Contact w/Intl Traveler<30days: No Traveled to known affect area: No History of Present Illness HPI 37-year-old female with history of bipolar, depression, diabetes, hypertension, crack cocaine use, presents to emergency department under a Dietz act for psychiatric evaluation. states she's been having suicidal thoughts with plan to cut her wrist with a razor blade. She reports having a problem with cocaine, last using it today. States that her blood glucoses never under control. Denies any pain. She has no other symptoms to report at this time. PFSH Past Medical History Arthritis: Yes (WRISTS, BACK KNEES) Asthma: No Autoimmune Disease: No Blood Disorders: No Bipolar Disorder: Yes Anxiety: Yes Depression: Yes Heart Rhythm Problems: No Cancer: No Cardiovascular Problems: Yes High Cholesterol: Yes Chemotherapy: No Chest Pain: No Congestive Heart Failure: No COPD: No Cerebrovascular Accident: No Diabetes: Yes Diminished Hearing: No Endocrine: Yes Gastrointestinal Disorders: No GERD: No Glaucoma: No Genitourinary: No Headaches: Yes Hepatitis: No Hiatal Hernia: No Hypertension: Yes Immune Disorder: No Implanted Vascular Access Dvce: No Kidney Stones: No Musculoskeletal: Yes Neurologic: Yes Psychiatric: Yes (BIPOLAR) Reproductive: No Respiratory: Yes Immunizations Current: Yes Migraines: No Myocardial Infarction: No Radiation Therapy: No Renal Failure: No Seizures: No Sickle Cell Disease: No Sleep Apnea: No Thyroid Disease: No Ulcer: No : 0 Past Surgical History Abdominal Surgery: No AICD: No Appendectomy: No Arteriovenous Shunt: No Cardiac Surgery: No Cholecystectomy: No Ear Surgery: No Endocrine Surgery: No Eye Surgery: No Genitourinary Surgery: No Gynecologic Surgery: No Insulin Pump: No Joint Replacement: No Neurologic Surgery: No Oral Surgery: No Pacemaker: No Thoracic Surgery: No Other Surgery: Yes Social History Alcohol Use: Yes ("EV[employer]") Tobacco Use: Yes (4 cigarettes) Substance Use: Yes (CRACK COCAINE USED YESTERDAY) Allergies-Medications (Allergen,Severity, Reaction): Coded Allergies: No Known Allergies (Verified Allergy, Unknown, 06/20/17) Reported Meds & Prescriptions Reported Meds & Active Scripts Active Duloxetine DR (Duloxetine HCl) 30 Mg Capdr 30 Mg PO BID 30 Days Gabapentin 600 Mg Tab 600 Mg PO TID Novolog Mix 70-30 FlexPen Inj (Insulin Aspart Protam-Asp 70-30 Inj) 300 Unit/3 Ml Pen 60 Units SQ BID 30 Days Review of Systems Except as stated in HPI: all other systems reviewed are Neg Physical Exam Narrative GENERAL: Obese female patient, lying in bed in no acute distress. SKIN: Focused skin assessment warm/dry. HEAD: Atraumatic. Normocephalic. EYES: Pupils equal and round. No scleral icterus. No injection or drainage. ENT: No nasal bleeding or discharge. Mucous membranes pink and moist. NECK: Trachea midline. No JVD. CARDIOVASCULAR: Regular rate and rhythm. No murmur appreciated. RESPIRATORY: No accessory muscle use. Diminished, likely due to girth to auscultation. Breath sounds equal bilaterally. GASTROINTESTINAL: Abdomen soft, non-tender, nondistended. Hepatic and splenic margins not palpable. MUSCULOSKELETAL: No obvious deformities. No clubbing. No cyanosis. No edema. NEUROLOGICAL: Awake and alert. No obvious cranial nerve deficits. Motor grossly within normal limits. Normal speech. Data Data Last Documented VS Vital Signs Date Time Temp Pulse Resp B/P (MAP) Pulse Ox O2 Delivery O2 Flow Rate FiO2 06/20/17 03:19 82 15 06/20/17 03:08 98.8 126/86 (99) 97 Orders Orders Complete Blood Count With Diff (06/20/17 03:14) Thyroid Stimulating Hormone (06/20/17 03:14) Basic Metabolic Panel (Bmp) (06/20/17 03:14) Ed Urine Pregnancytest Poc (06/20/17 03:14) Psych Screen (06/20/17 03:14) Drug Screen, Random Urine (06/20/17 03:14) Alcohol (Ethanol) (06/20/17 03:14) Labs Laboratory Tests Test 06/20/17 03:30 06/20/17 04:00 White Blood Count 7.5 TH/MM3 Red Blood Count 4.11 MIL/MM3 Hemoglobin 11.2 GM/DL Hematocrit 33.8 % Mean Corpuscular Volume 82.2 FL Mean Corpuscular Hemoglobin 27.2 PG Mean Corpuscular Hemoglobin Concent 33.1 % Red Cell Distribution Width 15.0 % Platelet Count 330 TH/MM3 Mean Platelet Volume 7.9 FL Neutrophils (%) (Auto) 55.3 % Lymphocytes (%) (Auto) 32.4 % Monocytes (%) (Auto) 5.6 % Eosinophils (%) (Auto) 5.4 % Basophils (%) (Auto) 1.3 % Neutrophils # (Auto) 4.2 TH/MM3 Lymphocytes # (Auto) 2.4 TH/MM3 Monocytes # (Auto) 0.4 TH/MM3 Eosinophils # (Auto) 0.4 TH/MM3 Basophils # (Auto) 0.1 TH/MM3 CBC Comment DIFF FINAL Differential Comment Blood Urea Nitrogen 14 MG/DL Creatinine 1.03 MG/DL Random Glucose 65 MG/DL Calcium Level 8.4 MG/DL Sodium Level 140 MEQ/L Potassium Level 3.5 MEQ/L Chloride Level 108 MEQ/L Carbon Dioxide Level 26.5 MEQ/L Anion Gap 6 MEQ/L Estimat Glomerular Filtration Rate 73 ML/MIN Thyroid Stimulating Hormone 3rd Gen 1.320 uIU/ML Ethyl Alcohol Level LESS THAN 3 MG/DL Urine Opiates Screen NEG Urine Barbiturates Screen NEG Urine Amphetamines Screen NEG Urine Benzodiazepines Screen NEG Urine Cocaine Screen POS Urine Cannabinoids Screen POS MDM Medical Decision Making Medical Screen Exam Complete: Yes Emergency Medical Condition: Yes Medical Record Reviewed: Yes Differential Diagnosis Mood disorder versus personality disorder versus adjustment reaction disorder Narrative Course 37-year-old female presents to emergency department under Dietz act for psychiatric evaluation. Patient appears without distress. Her vital signs are stable. Lab work is without acute concern except for blood glucose of 65. Patient is tolerating by mouth and given juice to drink. Toxicology is positive for cocaine and cannabinoids. Patient is medically cleared at this time for psychiatric screening for further evaluation and disposition recommendation. Mental health screening discussed with the patient. Psychiatric screen ordered. Diagnosis Primary Impression: Adjustment disorder with depressed mood Condition: Stable Lili Llamas Jun 20, 2017 03:15
[2017-06-20 03:41] LABS: AUTOMATED NEUTROPHIL # 4.2 TH/MM3 (1.8-7.7); BASOPHIL # 0.1 TH/MM3 (0-0.2); BASOPHIL % 1.3 % (0.0-2.0); EOSINOPHIL # 0.4 TH/MM3 (0-0.4); EOSINOPHIL % 5.4 % (0.0-4.0); HEMATOCRIT 33.8 % (35.0-46.0); HEMOGLOBIN 11.2 GM/DL (11.6-15.3); LYMPH % 32.4 % (9.0-44.0); LYMPHOCYTE # 2.4 TH/MM3 (1.0-4.8); MEAN CELL VOLUME 82.2 FL (80.0-100.0); MEAN CORPUSCULAR HEMOGLOBIN 27.2 PG (27.0-34.0); MEAN CORPUSCULAR HGB CONC 33.1 % (32.0-36.0); MEAN PLATELET VOLUME 7.9 FL (7.0-11.0); MONO % 5.6 % (0.0-8.0); MONOCYTE # 0.4 TH/MM3 (0-0.9); NEUT % 55.3 % (16.0-70.0); PLATELET COUNT 330 TH/MM3 (150-450); RED BLOOD COUNT 4.11 MIL/MM3 (4.00-5.30); WHITE BLOOD COUNT 7.5 TH/MM3 (4.0-11.0)
[2017-06-20 03:54] LABS: BICARBONATE 26.5 MEQ/L (21.0-32.0); BLOOD UREA NITROGEN 14 MG/DL (7-18); CALCIUM 8.4 MG/DL (8.5-10.1); CHLORIDE 108 MEQ/L (98-107); CREATININE 1.03 MG/DL (0.50-1.00); GLOMERULAR FILTRATION RATE 73 ML/MIN (>89); GLUCOSE,RANDOM 65 MG/DL (74-106); SODIUM (NA) 140 MEQ/L (136-145)
[2017-06-20 07:15] VITALS: BP 135/85; PULSE 82; RESP 16; TEMP 98.1; O2SAT 99
[2017-06-20 14:07] VITALS: BP 164/92; PULSE 90; RESP 18; O2SAT 99
--- NOTE | 2017-06-20 16:55 | PD ---
History of Present Illness Chief Complaint: Psychiatric Symptoms Time Seen by Provider: 16:25 Travel History International Travel<30 Days: No Contact w/Intl Traveler<30days: No Known affected area: No Legal Status Legal Status: Dietz Act Dietz Act Signed By: Fabien Santos History of Present Illness: History of Present Illness HPI 37-year-old female with history of bipolar, substance abuse disorder, who presents to emergency department under a Dietz act initiated by law enforcement . Reportedly alleges that she has been feeling depressed as well as having suicidal ideation. The patient admits to continued symptoms of depression including feeling hopeless and helpless, as well as having suicidal thoughts. She states that since her her discharge from the psychiatric unit on May 19 and she failed to follow up with prescribed medications and has been using both crack cocaine and marijuana. She is now requesting help with her substance abuse problem and wants to be admitted to a facility that would address such issues. Electronic medical record is reviewed. The patient was admitted to our inpatient psychiatric unit on May 13, 2017 for suicidal ideation as well as continue substance use. Current toxicology is positive for cocaine and cannabinoids. The patient is seen in J pod. She is awake, alert and oriented. Hygiene and grooming are fair. Speech is clear, logical. There is no evidence of any psychosis and denies any hallucinations. Mood is depressed. Reports suicidal ideation with plan of cutting her wrists with a razor blade. Attention and concentration are not impaired. Reports low-level of energy, fair appetite. Remaining psychiatric review of systems is negative. . PFSH Past Medical History Hx Anticoagulant Therapy: Yes (ASA) Arthritis: Yes (WRISTS, BACK KNEES) Asthma: No Autoimmune Disease: No Blood Disorders: No Bipolar Disorder: Yes Anxiety: Yes Depression: Yes Heart Rhythm Problems: No Cancer: No Cardiovascular Problems: Yes (HTN) High Cholesterol: Yes Chemotherapy: No Chest Pain: No Congestive Heart Failure: No COPD: No Cerebrovascular Accident: No Diabetes: Yes Patient Takes Glucophage: No Diminished Hearing: No Endocrine: Yes Gastrointestinal Disorders: No GERD: No Glaucoma: No Genitourinary: No Headaches: Yes Hepatitis: No Hiatal Hernia: No Hypertension: Yes Immune Disorder: No Implanted Vascular Access Dvce: No Kidney Stones: No Musculoskeletal: Yes Neurologic: Yes Psychiatric: Yes (BIPOLAR) Reproductive: No Respiratory: Yes Immunizations Current: Yes Migraines: No Myocardial Infarction: No Radiation Therapy: No Renal Failure: No Seizures: No Sickle Cell Disease: No Sleep Apnea: No Thyroid Disease: No Ulcer: No ?: Not LMP: 06/15/17 : 0 Past Surgical History Abdominal Surgery: No AICD: No Appendectomy: No Arteriovenous Shunt: No Cardiac Surgery: No Cholecystectomy: No Ear Surgery: No Endocrine Surgery: No Eye Surgery: No Genitourinary Surgery: No Gynecologic Surgery: No Insulin Pump: No Joint Replacement: No Neurologic Surgery: No Oral Surgery: No Pacemaker: No Thoracic Surgery: No Other Surgery: Yes Psychiatric History Psychiatric History Hx Psychiatric Treatment: History of bipolar disorder. Last hospitalized in 2017. Currently noncompliant with medications History of Inpatient Treatment: Yes ([facility] April 2017) Guns or firearms in home: No Social History Single, homeless female. Unemployed. Hx Alcohol Use: Yes ("EVERY BLUE STEEL") Hx Tobacco Use: Yes (4 cigarettes) Hx Substance Use: Yes (CRACK COCAINE USED YESTERDAY) Substance Use Type: Nicotine/Cigarettes, Cocaine Other Substances Used: HAS BEEN USING CRACK SINCE SHE WAS 17 Hx of Substance Use Treatment: Yes (many years ago in [facility] Family Psychiatric History Negative Allergies-Medications (Allergen,Severity, Reaction): Coded Allergies: No Known Allergies (Verified Allergy, Unknown, 06/20/17) Reported Meds & Prescriptions Reported Meds & Active Scripts Active Duloxetine DR (Duloxetine HCl) 30 Mg Capdr 30 Mg PO BID 30 Days Gabapentin 600 Mg Tab 600 Mg PO TID Novolog Mix 70-30 FlexPen Inj (Insulin Aspart Protam-Asp 70-30 Inj) 300 Unit/3 Ml Pen 60 Units SQ BID 30 Days Review of Systems Psychiatric: COMPLAINS OF: Depression, Suicidal Ideation Except as stated in HPI: all other systems reviewed are Neg Mental Status Examination Appearance: Appropriate Consciousness: Alert Orientation: x4 Motor Activity: Normal gait Speech: Unremarkable Language: Adequate Fund of Knowledge: Adequate Attention and Concentration: Adequate, Easily Distracted Memory: Unremarkable Mood: Sad, Other (depressed) Affect: Appropriate Thought Process & Associations: Intact, Logical, Goal directed Thought Content: Appropriate Hallucination Type: None Delusion Type: None Suicidal Ideation: Yes Suicidal Plan: Yes (to cut her wrist with a razor blade) Suicidal Intention: Yes Homicidal Ideation: No Homicidal Plan: No Homicidal Intention: No Insight: Poor Judgment: Impulsive MDM Medical Decision Making Medical Record Reviewed: Yes Assessment/Plan 37-year-old female with bipolar disorder, crack cocaine abuse, cannabis abuse, who in context of continued use of substances and noncompliance with psychiatric medication is reporting continued symptoms of depression with hopelessness as well as suicidal ideation with intent of cutting her wrists with a razor blade. The patient feels that if she does not receive treatment for her substance use that she will not be able to function anymore due to her continued depression. She is wanting to be treated for her substance use. I have explained to her that we do not provide substance abuse treatment and she is willing to be sent to a facility that does provide a dual treatment program. I have asked staff to present her case at [facility] as well as to [facility]. The patient will remain under Dietz act until a disposition is determined. Case discussed with Dr Cárdenas. Patient is appropriate for transfer to a dual dx treatment program such as [facility]. Orders Orders Complete Blood Count With Diff (06/20/17 03:14) Thyroid Stimulating Hormone (06/20/17 03:14) Basic Metabolic Panel (Bmp) (06/20/17 03:14) Ed Urine Pregnancytest Poc (06/20/17 03:14) Psych Screen (06/20/17 03:14) Drug Screen, Random Urine (06/20/17 03:14) Alcohol (Ethanol) (06/20/17 03:14) Diet Regular Basic (06/20/17 Breakfast) Diet Regular Basic (06/20/17 Dinner) Results Vital Signs Date Time Temp Pulse Resp B/P (MAP) Pulse Ox O2 Delivery O2 Flow Rate FiO2 06/20/17 14:07 90 18 164/92 (116) 99 Room Air 06/20/17 07:15 80 16 06/20/17 07:15 98.1 82 16 135/85 (102) 99 Room Air 06/20/17 03:19 82 15 06/20/17 03:08 98.8 84 15 126/86 (99) 97 Laboratory Tests Test 06/20/17 03:30 06/20/17 04:00 White Blood Count 7.5 Red Blood Count 4.11 Hemoglobin 11.2 Hematocrit 33.8 Mean Corpuscular Volume 82.2 Mean Corpuscular Hemoglobin 27.2 Mean Corpuscular Hemoglobin Concent 33.1 Red Cell Distribution Width 15.0 Platelet Count 330 Mean Platelet Volume 7.9 Neutrophils (%) (Auto) 55.3 Lymphocytes (%) (Auto) 32.4 Monocytes (%) (Auto) 5.6 Eosinophils (%) (Auto) 5.4 Basophils (%) (Auto) 1.3 Neutrophils # (Auto) 4.2 Lymphocytes # (Auto) 2.4 Monocytes # (Auto) 0.4 Eosinophils # (Auto) 0.4 Basophils # (Auto) 0.1 CBC Comment DIFF FINAL Differential Comment Blood Urea Nitrogen 14 Creatinine 1.03 Random Glucose 65 Calcium Level 8.4 Sodium Level 140 Potassium Level 3.5 Chloride Level 108 Carbon Dioxide Level 26.5 Anion Gap 6 Estimat Glomerular Filtration Rate 73 Thyroid Stimulating Hormone 3rd Gen 1.320 Ethyl Alcohol Level LESS THAN 3 Urine Opiates Screen NEG Urine Barbiturates Screen NEG Urine Amphetamines Screen NEG Urine Benzodiazepines Screen NEG Urine Cocaine Screen POS Urine Cannabinoids Screen POS Diagnosis Primary Impression: Other psychoactive substance abuse with psychoactive substance-induced mood disorder Additional Impression: Bipolar 1 disorder, depressed Condition: Stable Problem Qualifiers Romelia Pitts Jun 20, 2017 16:55
[2017-06-20 18:40] VITALS: BP 146/82; PULSE 75; RESP 20; TEMP 99; O2SAT 98
[2017-06-20 22:11] VITALS: BP 143/76; PULSE 83; RESP 17; TEMP 98.1; O2SAT 98
[2017-06-21 02:30] VITALS: BP 148/92; PULSE 88; RESP 18; TEMP 98.1; O2SAT 97
[2017-06-21 06:20] VITALS: BP 162/82; PULSE 86; RESP 18; TEMP 97.5; O2SAT 97
[2017-06-21 10:25] VITALS: BP 152/83; PULSE 89; RESP 16; O2SAT 98
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
--- NOTE | 2017-06-21 15:21 | PD ---
Physical Exam Narrative I was asked by the psych department to discharge patient after patient was evaluated and cleared by psych. Patient was previously medically cleared by previous provider. Please see their documentation for full H&P. Patient denies any homicidal or suicidal ideations. Denies any medical concerns at this time. Denies anything making symptoms better or worse. Denies any pain or radiation of pain. Patient is requesting two bus passes. Data Data Last Documented VS Vital Signs Date Time Temp Pulse Resp B/P (MAP) Pulse Ox O2 Delivery O2 Flow Rate FiO2 06/21/17 15:53 06/21/17 10:25 89 16 98 Room Air 06/21/17 06:20 97.5 Orders Orders Complete Blood Count With Diff (06/20/17 03:14) Thyroid Stimulating Hormone (06/20/17 03:14) Basic Metabolic Panel (Bmp) (06/20/17 03:14) Ed Urine Pregnancytest Poc (06/20/17 03:14) Psych Screen (06/20/17 03:14) Drug Screen, Random Urine (06/20/17 03:14) Alcohol (Ethanol) (06/20/17 03:14) Diet Regular Basic (06/20/17 Breakfast) Diet Regular Basic (06/20/17 Dinner) Diet Diabetic (06/21/17 Breakfast) Diet 1800 Ada Cons Carb (06/21/17 Lunch) Ed Discharge Order (06/21/17 15:21) Labs Laboratory Tests Test 06/20/17 03:30 06/20/17 04:00 White Blood Count 7.5 TH/MM3 Red Blood Count 4.11 MIL/MM3 Hemoglobin 11.2 GM/DL Hematocrit 33.8 % Mean Corpuscular Volume 82.2 FL Mean Corpuscular Hemoglobin 27.2 PG Mean Corpuscular Hemoglobin Concent 33.1 % Red Cell Distribution Width 15.0 % Platelet Count 330 TH/MM3 Mean Platelet Volume 7.9 FL Neutrophils (%) (Auto) 55.3 % Lymphocytes (%) (Auto) 32.4 % Monocytes (%) (Auto) 5.6 % Eosinophils (%) (Auto) 5.4 % Basophils (%) (Auto) 1.3 % Neutrophils # (Auto) 4.2 TH/MM3 Lymphocytes # (Auto) 2.4 TH/MM3 Monocytes # (Auto) 0.4 TH/MM3 Eosinophils # (Auto) 0.4 TH/MM3 Basophils # (Auto) 0.1 TH/MM3 CBC Comment DIFF FINAL Differential Comment Blood Urea Nitrogen 14 MG/DL Creatinine 1.03 MG/DL Random Glucose 65 MG/DL Calcium Level 8.4 MG/DL Sodium Level 140 MEQ/L Potassium Level 3.5 MEQ/L Chloride Level 108 MEQ/L Carbon Dioxide Level 26.5 MEQ/L Anion Gap 6 MEQ/L Estimat Glomerular Filtration Rate 73 ML/MIN Thyroid Stimulating Hormone 3rd Gen 1.320 uIU/ML Ethyl Alcohol Level LESS THAN 3 MG/DL Urine Opiates Screen NEG Urine Barbiturates Screen NEG Urine Amphetamines Screen NEG Urine Benzodiazepines Screen NEG Urine Cocaine Screen POS Urine Cannabinoids Screen POS MDM Supervised Visit with KYLEIGH: No Narrative Course Patient in no obvious distress upon re-evaluation. Any questions/concerns in reference to patient diagnosis/condition discussed and clarified prior to patient's discharge. Reinforced sheer importance of close follow up with patient 's primary physician or primary care clinic. Instructed patient to return to ED immediately, if symptoms return/worsen. Patient showed understanding of above instructions. Further instructions and recommendations were detailed in discharge paperwork. Patient ambulated without difficulty out of ED at discharge. Diagnosis Primary Impression: Other psychoactive substance abuse with psychoactive substance-induced mood disorder Additional Impression: Bipolar 1 disorder, depressed [facility] Patient Instructions: General Instructions Additional Instruction: Follow-up with your primary care physician and/or Jose Alfredo Harrison in 3-5 days for re-evaluation. Return to the emergency department if symptoms get worse. Disposition: 01 DISCHARGE HOME Condition: Stable Danny Priest Jun 21, 2017 15:21
== END 2017-06-21 15:56 | disposition home or self-care (01) ==
LOC: NEPD 02:55 → NEPJ 06-21 15:56
DX: F19.14 Other psychoactive substance abuse with psychoactive substance-induced mood disorder (principal); F31.9 Bipolar disorder, unspecified; F43.21 Adjustment disorder with depressed mood; R45.851 Suicidal ideations; E11.9 Type 2 diabetes mellitus without complications; I10 Essential (primary) hypertension; F41.9 Anxiety disorder, unspecified; Z59.0 Homelessness; Z91.14 Patient's other noncompliance with medication regimen
CPT/HCPCS: 80048; 80307; 84443; 84703; 85025; 99284

== ENCOUNTER 2017-07-20 01:41 | Inpatient (IN) | payer MEDICARE, OTHER ==
[~2017-07-20] VITALS: Ht 170.2 cm; Wt 113.3 kg
[~2017-07-20 01:41] MED LIST changes: -ASPI-183 PO; -LISI10TA3 PO; -MELO15TA20 PO; -TRAZ100T10 PO; -TYLETAB34 PO
[2017-07-20 01:49] VITALS: BP 132/85; PULSE 100; RESP 18; TEMP 98.4; O2SAT 100
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
[2017-07-20 04:21] LABS: ALBUMIN 3.3 GM/DL (3.4-5.0); ALT (GPT) 16 U/L (10-53); AST (GOT) 15 U/L (15-37); BICARBONATE 23.9 MEQ/L (21.0-32.0); BLOOD UREA NITROGEN 19 MG/DL (7-18); CHLORIDE 104 MEQ/L (98-107); GLOMERULAR FILTRATION RATE 51 ML/MIN (>89); GLUCOSE,RANDOM 302 MG/DL (74-106); SODIUM (NA) 136 MEQ/L (136-145)
[2017-07-20 04:22] LABS: ALKALINE PHOSPHATASE 90 U/L (45-117); TOTAL BILIRUBIN ADULT 0.2 MG/DL (0.2-1.0); TOTAL PROTEIN 7.5 GM/DL (6.4-8.2)
[2017-07-20] MEDS ORDERED: INSULIN HUMAN REGULAR 1,000 UNITS/10 ML VIAL SQ ONE (06:00)
[2017-07-20] MEDS ORDERED: metFORMIN HCL 500 MG TAB PO ONE (06:00)
[2017-07-20] MEDS ORDERED: METF500T PO (06:26)
[2017-07-20 06:52] VITALS: BP 118/71; PULSE 85; RESP 17; O2SAT 96
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
[2017-07-20 10:54] VITALS: BP 114/56; PULSE 86; RESP 18; O2SAT 97
[2017-07-20] MEDS ORDERED: ACETAMINOPHEN 325 MG TAB PO PRN (11:15)
[2017-07-20] MEDS ORDERED: MAGNESIUM HYDROXIDE SUSP 30 ML CUP PO PRN (11:15)
[2017-07-20] MEDS ORDERED: ALUMINUM/MAGNESIUM/SIMETH 30 ML CUP PO PRN (11:15)
[2017-07-20 18:22] VITALS: BP 138/81; PULSE 91; RESP 16; TEMP 97.9; O2SAT 94
[2017-07-21 05:52] VITALS: BP 130/85; PULSE 79; RESP 16; TEMP 97.8; O2SAT 97
[2017-07-21] MEDS ORDERED: NICOTINE 21 MG/24 HR PATCH T-DERMAL SCH (09:00)
[2017-07-21] MEDS ORDERED: REMOVE OLD PATCH T-DERMAL SCH (09:00)
[2017-07-21 10:04] LABS: BICARBONATE 25.6 MEQ/L (21.0-32.0); BLOOD UREA NITROGEN 13 MG/DL (7-18); CALCIUM 9.2 MG/DL (8.5-10.1); CHLORIDE 102 MEQ/L (98-107); CREATININE 1.18 MG/DL (0.50-1.00); GLOMERULAR FILTRATION RATE 62 ML/MIN (>89); GLUCOSE,RANDOM 321 MG/DL (74-106); SODIUM (NA) 134 MEQ/L (136-145)
[2017-07-21 10:05] LABS: CHOLESTEROL 142 MG/DL (120-200); TRIGLYCERIDES 196 MG/DL (42-150)
[2017-07-21 10:11] LABS: CHOLESTEROL/ HDL RATIO 4.06 RATIO; HDL CHOLESTEROL 34.9 MG/DL (40.0-60.0); LDL CHOLESTEROL 68 MG/DL (0-99)
--- NOTE | 2017-07-21 10:40 | HHI.HP ---
Provisional Diagnosis Admission Date Jul 20, 2017 at 11:19 Finger I. 1. Cocaine dependence with cocaine induced mood disorder, mood disorder now resolved 2. Cannabis abuse Finger II. Deferred Certification of Person's Competence To Provide Express and Informed Consent I have personally examined Esmer Dee , a person being served at [facility] on, Jul 21, 2017 10:40. Express and informed consent means consent voluntarily given in writing, by a competent person, after sufficient explanation and disclosure of the subject matter involved to enable the person to make a knowing and willful decision without any element of force, fraud, deceit, duress, or other form of constraint or coercion. This person is 18 years of age or older, is not now known to be incompetent to consent to treatment with a guardian advocate, and does not have a health care surrogate or proxy currently making medical treatment decisions. I have found this person to be one of the following: [x Competent to provide express and informed consent, as defined above, for voluntary admission to this facility and is competent to provide express and informed consent for treatment. He/she has the consistent capacity to make well reasoned, willful, and knowing decisions concerning his or her medical or mental health treatment. The person fully and consistently understands the purpose of the admission for examination/placement and is fully capable of personally exercising all rights assured under [place] [] Incompetent to provide express and informed consent to voluntary admission, and this is incompetent to provide express and informed consent to treatment. The person must be transferred to involuntary status and a petition for a guardian advocate filed with the Circuit Court. [] Refusing to provide express and informed consent to voluntary admission but is competent to provide express and informed consent for treatment. The person must be discharged or transferred to involuntary status. Form shall be completed within 24 hours of a person's arrival at the receiving facility and filed in the clinical record of each person: 1. Admitted on a voluntary basis 2. Permitted to provide express and informed consent to his/her own treatment 3. Allowed to transfer from involuntary to voluntary status 4. Prior to permitting a person to consent to his or her own treatment after having been previously found incompetent to consent to treatment. History of Present Illness Capacity: Has Capacity Psych Chief Complaint: No psychiatric complaints presently HPI Ms. Dee is a 37-year-old female with a reported history of substance use issues in the chart history of adjustment disorder who presented to the emergency department voluntarily complaining of suicidal ideation in the setting of polysubstance intoxication. She was evaluated by the psychiatric nurse practitioner and apparently disclosed some violent thoughts towards her roommate. She was admitted voluntarily to the inpatient psychiatric unit. Reviewing the electronic medical record, I note that the patient was most recently psychiatrically admitted here in April [address] Cárdenas. Patient seen and examined with nurse. Chart reviewed. Case discussed with nursing staff. Patient noted to be somewhat entitled and demanding but no real behavioral problem on the unit. There has been no evidence of any suicidality or homicidality on the inpatient unit. On my examination today, the patient reports that she would like to be discharged today so that she can take a bus to [place], [place] to stay with family at 3 PM. She is clinically sober presently. She plans to go with police to retrieve her clothes from her apartment before boarding the bus. She denies any suicidal or homicidal ideation, intent or plan on direct questioning and contracts for safety. In particular, she denies any violent or homicidal ideation directed against her roommate Nina Aceves. She says that Ms. Aceves "is drama. She ain't worth my time." She understands that any violent action against Ms. Aceves would be illegal and immoral and result in legal sanction. She denies any issues with mood, and I can elicit no depressive or hypomanic/manic symptoms presently. She is future oriented. She denies any audiovisual hallucinations. I can elicit no delusional beliefs. There is no evidence of any impairment in reality construction. The remainder of the psychiatric ROS is negative. Patient has no physical complaints. Past psychiatric history: Patient reports a history of substance use issues. She does not follow with psychiatry on an outpatient basis she tells me. Her most recent psychiatric admission was here at [place] as noted above. She denies history of suicide attempts. Denies a history of violent behavior in the past. Family history: The patient notes that her father had some sort of mental illness, she is unsure of the diagnosis. She denies a family history of substance use disorder or suicide. Chemical dependency history: The patient admits to use of crack cocaine. She denies any other substance use including alcohol or benzodiazepines. Her urine toxicology was positive for cannabinoids in addition to the cocaine. Social history: The patient reports that she had been residing in an apartment with a roommate but now plans to go to [place] and stay with family there. She is single with no children. She denies any history. Denies any legal history. Denies any access to guns or firearms. Denies any yazdanism or spiritual beliefs. Denies any physical, verbal or sexual abuse history. Review of Systems Except as stated in HPI: all other systems reviewed are Neg Past Family Social History Coded Allergies: No Known Allergies (Verified Allergy, Unknown, 07/20/17) Past Medical History Includes a history of diabetes mellitus Active Scripts Gabapentin (Gabapentin) 600 Mg Tab, 600 MG PO TID for health, #90 TAB 0 Refills Prov:Mariano Cárdenas MD 05/19/17 Insulin Aspart Protam-Asp 70-30 Inj (Novolog Mix 70-30 FlexPen Inj) 300 Unit/3 Ml Pen, 60 UNITS SQ BID for Blood Sugar Management for 30 Days, #1 PEN 0 Refills Prov:Mariano Cárdenas MD 05/19/17 Reported Medications Metformin (Metformin) 500 Mg Tab, 500 MG PO BIDPC for Blood Sugar Management, # 60 TAB 0 Refills 07/20/[address] (Duloxetine DR) 30 Mg Capdr, 30 MG PO BID for health for 30 Days, #60 CAP Prov:Mariano Cárdenas MD 05/19/17 Current Medications Medications (Trade) Dose Ordered Sig/Kodak Route Start Time Stop Time Status Last Admin (Tylenol) 650 mg Q4H PRN PO 07/20/17 11:15 07/21/17 08:07 (Milk Of Magnesia Liq) 30 ml DAILY PRN PO 07/20/17 11:15 (Mag-Al Plus Susp Liq) 30 ml Q6H PRN PO 07/20/17 11:15 (Habitrol 21 Mg Patch.24 Hr) 1 patch DAILY T-DERMAL 07/21/17 09:00 Miscellaneous Information 1 DAILY T-DERMAL 07/21/17 09:00 Physical Exam Physical examination was completed by the ED provider. On my examination today , the patient appears to be in no acute physical distress. No motor abnormalities noted. No signs of intoxication or withdrawal noted. Labs and vitals reviewed: Vital Signs Vital Signs Date Time Temp Pulse Resp B/P (MAP) Pulse Ox O2 Delivery O2 Flow Rate FiO2 07/21/17 05:52 97.8 79 16 130/85 (100) 97 07/20/17 10:54 Room Air Lab Results Item Value Date Time White Blood Count 7.3 TH/MM3 05/15/17 0806 Hemoglobin 12.4 GM/DL 05/15/17 0806 Platelet Count 325 TH/MM3 05/15/17 0806 Sodium Level 134 MEQ/L L 07/21/17 0842 Potassium Level 3.8 MEQ/L 07/21/17 0842 Chloride Level 102 MEQ/L 07/21/17 0842 Carbon Dioxide Level 25.6 MEQ/L 07/21/17 0842 Blood Urea Nitrogen 13 MG/DL 07/21/17 0842 Creatinine 1.18 MG/DL H 07/21/17 0842 Estimat Glomerular Filtration Rate 62 ML/MIN L 07/21/17 0842 Aspartate Amino Transf (AST/SGOT) 15 U/L 07/20/17 0350 Alanine Aminotransferase (ALT/SGPT) 16 U/L 07/20/17 0350 Alkaline Phosphatase 90 U/L 07/20/17 0350 Urine Cocaine Screen POS H 07/20/17 0350 Urine Cannabinoids Screen POS H 07/20/17 0350 Mental Status Examination Appearance: Appropriate Consciousness: Alert Orientation: x4 Motor Activity: Other (no motor abnormalities noted) Speech: Unremarkable Language: Adequate Fund of Knowledge: Adequate Attention and Concentration: Adequate Memory: Unremarkable Mood: Appropriate Affect: Appropriate Thought Process & Associations: Intact, Logical, Goal directed, Linear Thought Content: Appropriate Hallucination Type: None Delusion Type: None Suicidal Ideation: No Suicidal Plan: No Suicidal Intention: No Homicidal Ideation: No Homicidal Plan: No Homicidal Intention: No Insight: Fair Judgment: Adequate (fair) Assessment & Plan Problem List: (1) Cocaine dependence ICD Codes: F14.20 - Cocaine dependence, uncomplicated (2) Cannabis abuse ICD Codes: F12.10 - Cannabis abuse, uncomplicated Assessment & Plan This is a 37-year-old female with psychiatric history as detailed above who presented to the emergency department voluntarily with suicidal ideation. She apparently articulated some violent thoughts about her roommate to the nurse practitioner in the ED. On my examination this morning, the patient is clinically sober and denying suicidal or homicidal ideation. She is requesting discharge from the hospital today. I can detect no mental illness as defined under the Dietz act in this patient at this time. She appears to be attending to her basic needs. It is my suspicion that her psychiatric symptoms, such as they were last night, were substance-induced. Synthesizing this information and based on the available evidence, I documentation specialist that the patient does not presently meet the Dietz act criteria. She does not meet criteria for involuntary psychiatric hospitalization. She is requesting discharge from the inpatient psychiatric unit today, and I have no basis to retain her over her objection. I will discharge the patient to self today in fair condition. I have recommended that she follow-up with outpatient mental health and also for chemical dependency evaluation and treatment on an outpatient basis. I have recommended that she abstain from substances of abuse. I recommended that she follow-up with primary care. I have recommended that she continue her prior to admission medications on discharge, and I have written her no scripts on discharge. This note serves also has my discharge summary. Request HC Surrog/Guard Advoc?: No Problem Qualifiers (1) Cocaine dependence: Qualified Codes: F14.24 - Cocaine dependence with cocaine-induced mood disorder Clayton Correia MD Jul 21, 2017 10:40
--- NOTE | 2017-07-21 10:44 | PD.TTN ---
Patient Problems 1. Discharge planning 2. Medication compliance 3. Knowledge deficit 4. Lack of coping skills Progress Toward Goals Provider Present: Dr. Oscar Correia Provider Input: 07/21/17 - Patient is a new admission and has a history of cocaine abuse and suicidal ideations. Psychiatric Counselors Present: NELSON Sidhu Psych Therapist Input: 07/21/17 - Counselor will meet with patient today to conduct biopsychosocial assessment. Group Spec/RT/OT/OREILLY Present: SILVINO Hines Group Spec/RT/OT/OREILLY Input: 07/21/17 - Patient has attended select group activities. Constant supervision needed. Discharge Plan 07/21/17 - Patient will return home following discharge. Documentation Scribe: NELSON Sidhu Date Resolved: Jul 21, 2017 Teaching Recipient: Patient Vicky,Niki DAMON Jul 21, 2017 10:44
[2017-07-21] MEDS ORDERED: GLUCAGON 1 MG/ML VIAL OTHER PRN (10:45)
[2017-07-21] MEDS ORDERED: DEXTROSE 50% IN WATER 50 ML VIAL(D50) IV PUSH PRN (10:45)
[2017-07-21] MEDS ORDERED: metFORMIN HCL 500 MG TAB PO SCH (11:00)
[2017-07-21] MEDS ORDERED: INSULIN ASPAR PROT 70/30 1,000 UNITS/10 ML VIAL SQ SCH (12:00)
[2017-07-21] MEDS ORDERED: INSULIN ASPART SUPPLEMENTAL SCALE SQ SCH (12:00)
[2017-07-21] MEDS ORDERED: GABAPENTIN 300 MG CAP PO SCH (13:00)
[2017-07-21 14:42] LABS: HEMOGLOBIN A1C 8.3 % (4.3-6.0)
--- NOTE | 2017-07-21 14:44 | EKG ---
Date Performed: 07/21/2017 Time Performed: 10:37:53 PTAGE: 37 years EKG: Sinus rhythm NORMAL ECG PREVIOUS TRACING : 05/13/2017 08.46 Since the prior tracing, there has been no significant robbins DOCTOR: Manda Link Interpretating Date/Time 07/21/2017 14:38:45
== END 2017-07-21 14:50 | disposition home or self-care (01) | DRG 897 ==
LOC: NEPD 01:41 → NEDA 11:19 → H260 13:55
PROVIDERS: ADMIT Psychiatry & Neurology Psychiatry; ATTEND Psychiatry & Neurology Psychiatry
DX: F14.24 Cocaine dependence with cocaine-induced mood disorder (principal); F12.10 Cannabis abuse, uncomplicated; I10 Essential (primary) hypertension; E11.9 Type 2 diabetes mellitus without complications; S00.83XA Contusion of other part of head, initial encounter; Y09 Assault by unspecified means; F17.210 Nicotine dependence, cigarettes, uncomplicated; Z79.4 Long term (current) use of insulin
CPT/HCPCS: 80048; 80053; 80061; 80307; 82948; 83036; 84703; 93005; 99285; J1815

== ENCOUNTER 2017-07-23 06:58 | Emergency (ER) | payer MEDICARE, OTHER ==
[~2017-07-23] VITALS: Ht 160 cm; Wt 110.0 kg
[~2017-07-23 06:58] MED LIST changes: -DULO1CAP2 PO; +METF500T PO
[2017-07-23 07:31] VITALS: BP 163/93; PULSE 99; RESP 18; TEMP 98.2; O2SAT 95
--- NOTE | 2017-07-23 07:31 | PD ---
HPI Chief Complaint: Psychiatric Symptoms Time Seen by Provider: 07:12 Travel History International Travel<30 days: No Contact w/Intl Traveler<30days: No History of Present Illness HPI Patient is a 37-year-old female presents emergency department for evaluation of suicidal ideation. Patient told paramedics she was thinking about hurting herself but did not have a real plan. She states she has been using cocaine and is dehydrated because she has not slept in 3 nights, she states she has not eaten in a week. Review of her records shows that she was released on July 21 with a diagnosis of cocaine induced mood disorder, it was documented that she was quite demanding but not a threat to herself or others. Patient is unwilling to talk about anything medical or psychiatric she only has high demands from the time she enters the emergency department including the TV remote and Gatorade. She is quite argumentative with this staff. PFSH Past Medical History Hx Anticoagulant Therapy: Yes (ASA) Arthritis: Yes (WRISTS, BACK KNEES) Asthma: No Autoimmune Disease: No Blood Disorders: No Bipolar Disorder: Yes Anxiety: Yes Depression: Yes Heart Rhythm Problems: No Cancer: No Cardiovascular Problems: Yes (HTN) High Cholesterol: Yes Chemotherapy: No Chest Pain: No Congestive Heart Failure: No COPD: No Cerebrovascular Accident: No Diabetes: Yes Diminished Hearing: No Endocrine: Yes Gastrointestinal Disorders: No GERD: No Glaucoma: No Genitourinary: No Headaches: Yes Hepatitis: No Hiatal Hernia: No Hypertension: Yes Immune Disorder: No Implanted Vascular Access Dvce: No Kidney Stones: No Musculoskeletal: Yes Neurologic: Yes Psychiatric: Yes (BIPOLAR) Reproductive: No Respiratory: Yes Immunizations Current: Yes Migraines: No Myocardial Infarction: No Radiation Therapy: No Renal Failure: No Seizures: No Sickle Cell Disease: No Sleep Apnea: No Thyroid Disease: No Ulcer: No : 0 Past Surgical History Abdominal Surgery: No AICD: No Appendectomy: No Arteriovenous Shunt: No Cardiac Surgery: No Cholecystectomy: No Ear Surgery: No Endocrine Surgery: No Eye Surgery: No Genitourinary Surgery: No Gynecologic Surgery: No Insulin Pump: No Joint Replacement: No Neurologic Surgery: No Oral Surgery: No Pacemaker: No Thoracic Surgery: No Other Surgery: Yes Social History Alcohol Use: No ("[employer]") Tobacco Use: Yes (4 cigarettes) Allergies-Medications (Allergen,Severity, Reaction): Coded Allergies: No Known Allergies (Verified Allergy, Unknown, 07/20/17) Reported Meds & Prescriptions Reported Meds & Active Scripts Active Gabapentin 600 Mg Tab 600 Mg PO TID Novolog Mix 70-30 FlexPen Inj (Insulin Aspart Protam-Asp 70-30 Inj) 300 Unit/3 Ml Pen 60 Units SQ BID 30 Days Reported Metformin (Metformin HCl) 500 Mg Tab 500 Mg PO BIDPC Review of Systems Except as stated in HPI: all other systems reviewed are Neg Physical Exam Narrative GENERAL: Well-developed, difficult to keep on task, focused on getting Gatorade. Patient was examined with female nurse core analyst present all times SKIN: Focused skin assessment warm/dry. HEAD: Atraumatic. Normocephalic. EYES: Pupils equal and round. No scleral icterus. No injection or drainage. ENT: No nasal bleeding or discharge. Mucous membranes pink and moist. NECK: Trachea midline. No JVD. CARDIOVASCULAR: Regular rate and rhythm. No murmur appreciated. RESPIRATORY: No accessory muscle use. Clear to auscultation. Breath sounds equal bilaterally. GASTROINTESTINAL: Abdomen soft, non-tender, nondistended. Hepatic and splenic margins not palpable. MUSCULOSKELETAL: No obvious deformities. No clubbing. No cyanosis. No edema. NEUROLOGICAL: Awake and alert. No obvious cranial nerve deficits. Motor grossly within normal limits. Normal speech. PSYCHIATRIC: Fairly poor insight and judgment, endorses suicidal ideation, quite argumentative at times Data Data Last Documented VS Vital Signs Date Time Temp Pulse Resp B/P (MAP) Pulse Ox O2 Delivery O2 Flow Rate FiO2 07/23/17 07:35 18 07/23/17 07:31 98.2 99 163/93 (116) 95 Orders Orders Complete Blood Count With Diff (07/23/17 07:12) Comprehensive Metabolic Panel (07/23/17 07:12) Thyroid Stimulating Hormone (07/23/17 07:12) Psych Screen (07/23/17 07:12) Drug Screen, Random Urine (07/23/17 07:12) Alcohol (Ethanol) (07/23/17 07:12) Ondansetron Inj (Zofran Inj) (07/23/17 08:00) Labs Laboratory Tests Test 07/23/17 07:22 07/23/17 07:27 White Blood Count 6.8 TH/MM3 Red Blood Count 4.76 MIL/MM3 Hemoglobin 13.1 GM/DL Hematocrit 37.6 % Mean Corpuscular Volume 79.1 FL Mean Corpuscular Hemoglobin 27.6 PG Mean Corpuscular Hemoglobin Concent 34.9 % Red Cell Distribution Width 14.0 % Platelet Count 270 TH/MM3 Mean Platelet Volume 8.6 FL Neutrophils (%) (Auto) 46.3 % Lymphocytes (%) (Auto) 36.4 % Monocytes (%) (Auto) 7.6 % Eosinophils (%) (Auto) 8.4 % Basophils (%) (Auto) 1.3 % Neutrophils # (Auto) 3.2 TH/MM3 Lymphocytes # (Auto) 2.5 TH/MM3 Monocytes # (Auto) 0.5 TH/MM3 Eosinophils # (Auto) 0.6 TH/MM3 Basophils # (Auto) 0.1 TH/MM3 CBC Comment AUTO DIFF Differential Comment AUTO DIFF CONFIRMED Blood Urea Nitrogen 10 MG/DL Creatinine 1.21 MG/DL Random Glucose 216 MG/DL Total Protein 8.2 GM/DL Albumin 3.7 GM/DL Calcium Level 9.3 MG/DL Alkaline Phosphatase 101 U/L Aspartate Amino Transf (AST/SGOT) 27 U/L Alanine Aminotransferase (ALT/SGPT) 18 U/L Total Bilirubin 0.4 MG/DL Sodium Level 132 MEQ/L Potassium Level 4.7 MEQ/L Chloride Level 101 MEQ/L Carbon Dioxide Level 25.5 MEQ/L Anion Gap 6 MEQ/L Estimat Glomerular Filtration Rate 60 ML/MIN Thyroid Stimulating Hormone 3rd Gen 0.736 uIU/ML Ethyl Alcohol Level LESS THAN 3 MG/DL Urine Opiates Screen NEG Urine Barbiturates Screen NEG Urine Amphetamines Screen NEG Urine Benzodiazepines Screen NEG Urine Cocaine Screen POS Urine Cannabinoids Screen POS [facility] Medical Decision Making Medical Screen Exam Complete: Yes Emergency Medical Condition: Yes Differential Diagnosis Cocaine intoxication, substance induced delirium, suicidal ideation, homicidal ideation, depression Narrative Course atient roomed in the emergency department, no medical complaints to warrant further workup, waiting for psychiatric screen patient under voluntary status at this time and has not set anything to me to warrant Dietz act as of yet. Will discuss with psychiatric screener. After discussion with the psychiatric screener patient will be seen by the psychiatrist for further recommendations. She is on a voluntary status at this time. She did admit to nursing that she was going to shoot me as well as slice herself if she was released. As long as the patient remains a voluntary status she does not meet Dietz act criteria. Otherwise she is medically cleared for psychiatric evaluation. Diagnosis Primary Impression: Cocaine dependence Condition: Stable Jabari Bullard MD Jul 23, 2017 07:31
[2017-07-23 07:35] LABS: AUTOMATED NEUTROPHIL # 3.2 TH/MM3 (1.8-7.7); BASOPHIL # 0.1 TH/MM3 (0-0.2); BASOPHIL % 1.3 % (0.0-2.0); EOSINOPHIL # 0.6 TH/MM3 (0-0.4); EOSINOPHIL % 8.4 % (0.0-4.0); HEMATOCRIT 37.6 % (35.0-46.0); HEMOGLOBIN 13.1 GM/DL (11.6-15.3); LYMPH % 36.4 % (9.0-44.0); LYMPHOCYTE # 2.5 TH/MM3 (1.0-4.8); MEAN CELL VOLUME 79.1 FL (80.0-100.0); MEAN CORPUSCULAR HEMOGLOBIN 27.6 PG (27.0-34.0); MEAN CORPUSCULAR HGB CONC 34.9 % (32.0-36.0); MEAN PLATELET VOLUME 8.6 FL (7.0-11.0); MONO % 7.6 % (0.0-8.0); MONOCYTE # 0.5 TH/MM3 (0-0.9); NEUT % 46.3 % (16.0-70.0); PLATELET COUNT 270 TH/MM3 (150-450); RED BLOOD COUNT 4.76 MIL/MM3 (4.00-5.30); WHITE BLOOD COUNT 6.8 TH/MM3 (4.0-11.0)
[2017-07-23] MEDS ORDERED: ONDANSETRON HCL 4 MG/2 ML VIAL IV PUSH ONE (08:00)
[2017-07-23 08:08] LABS: ALBUMIN 3.7 GM/DL (3.4-5.0); ALKALINE PHOSPHATASE 101 U/L (45-117); ALT (GPT) 18 U/L (10-53); AST (GOT) 27 U/L (15-37); BICARBONATE 25.5 MEQ/L (21.0-32.0); BLOOD UREA NITROGEN 10 MG/DL (7-18); CALCIUM 9.3 MG/DL (8.5-10.1); CHLORIDE 101 MEQ/L (98-107); CREATININE 1.21 MG/DL (0.50-1.00); GLOMERULAR FILTRATION RATE 60 ML/MIN (>89); GLUCOSE,RANDOM 216 MG/DL (74-106); SODIUM (NA) 132 MEQ/L (136-145); TOTAL BILIRUBIN ADULT 0.4 MG/DL (0.2-1.0); TOTAL PROTEIN 8.2 GM/DL (6.4-8.2)
[2017-07-23 09:28] VITALS: BP 162/100; PULSE 72; RESP 18; O2SAT 100
[2017-07-23 21:30] VITALS: BP 131/75; PULSE 96; RESP 16; O2SAT 95
[2017-07-24 07:50] VITALS: BP 132/78; PULSE 65; RESP 18; O2SAT 97
--- NOTE | 2017-07-24 09:35 | PD ---
Physical Exam Date Seen by Provider: Jul 24, 2017 Time Seen by Provider: 09:30 Data Data Last Documented VS Vital Signs Date Time Temp Pulse Resp B/P (MAP) Pulse Ox O2 Delivery O2 Flow Rate FiO2 07/24/17 07:50 65 18 132/78 (96) 97 Room Air 07/23/17 07:31 98.2 Orders Orders Complete Blood Count With Diff (07/23/17 07:12) Comprehensive Metabolic Panel (07/23/17 07:12) Thyroid Stimulating Hormone (07/23/17 07:12) Psych Screen (07/23/17 07:12) Drug Screen, Random Urine (07/23/17 07:12) Alcohol (Ethanol) (07/23/17 07:12) Ondansetron Inj (Zofran Inj) (07/23/17 08:00) Diet Regular Basic (07/24/17 Breakfast) Ed Discharge Order (07/24/17 09:23) Labs Laboratory Tests Test 07/23/17 07:22 07/23/17 07:27 White Blood Count 6.8 TH/MM3 Red Blood Count 4.76 MIL/MM3 Hemoglobin 13.1 GM/DL Hematocrit 37.6 % Mean Corpuscular Volume 79.1 FL Mean Corpuscular Hemoglobin 27.6 PG Mean Corpuscular Hemoglobin Concent 34.9 % Red Cell Distribution Width 14.0 % Platelet Count 270 TH/MM3 Mean Platelet Volume 8.6 FL Neutrophils (%) (Auto) 46.3 % Lymphocytes (%) (Auto) 36.4 % Monocytes (%) (Auto) 7.6 % Eosinophils (%) (Auto) 8.4 % Basophils (%) (Auto) 1.3 % Neutrophils # (Auto) 3.2 TH/MM3 Lymphocytes # (Auto) 2.5 TH/MM3 Monocytes # (Auto) 0.5 TH/MM3 Eosinophils # (Auto) 0.6 TH/MM3 Basophils # (Auto) 0.1 TH/MM3 CBC Comment AUTO DIFF Differential Comment AUTO DIFF CONFIRMED Blood Urea Nitrogen 10 MG/DL Creatinine 1.21 MG/DL Random Glucose 216 MG/DL Total Protein 8.2 GM/DL Albumin 3.7 GM/DL Calcium Level 9.3 MG/DL Alkaline Phosphatase 101 U/L Aspartate Amino Transf (AST/SGOT) 27 U/L Alanine Aminotransferase (ALT/SGPT) 18 U/L Total Bilirubin 0.4 MG/DL Sodium Level 132 MEQ/L Potassium Level 4.7 MEQ/L Chloride Level 101 MEQ/L Carbon Dioxide Level 25.5 MEQ/L Anion Gap 6 MEQ/L Estimat Glomerular Filtration Rate 60 ML/MIN Thyroid Stimulating Hormone 3rd Gen 0.736 uIU/ML Ethyl Alcohol Level LESS THAN 3 MG/DL Urine Opiates Screen NEG Urine Barbiturates Screen NEG Urine Amphetamines Screen NEG Urine Benzodiazepines Screen NEG Urine Cocaine Screen POS Urine Cannabinoids Screen POS MDM Medical Record Reviewed: Yes Supervised Visit with KYLEIGH: No Narrative Course Patient being transferred to the [facility]. Patient reassessed prior to discharge. She is resting comfortably, speaking appropriately. She ate her breakfast without difficulty. Labs reviewed. Creatinine stable from previous. Vital signs stable. She is stable for outpatient follow-up. Diagnosis Primary Impression: Cocaine dependence Patient Instructions: General Instructions, Cocaine Abuse (ED) Departure Forms: Tests/Procedures Disposition: 65 DISC TO [facility] Condition: Stable Valeria Soto Jul 24, 2017 09:35
== END 2017-07-24 10:11 ==
LOC: NEPC 06:58 → NEPD 07-24 10:11
DX: F14.20 Cocaine dependence, uncomplicated (principal); R45.851 Suicidal ideations; F31.9 Bipolar disorder, unspecified; F41.9 Anxiety disorder, unspecified; E78.00 Pure hypercholesterolemia, unspecified; I10 Essential (primary) hypertension; E11.9 Type 2 diabetes mellitus without complications; F17.210 Nicotine dependence, cigarettes, uncomplicated
CPT/HCPCS: 80053; 80307; 84443; 85025; 96374

== ENCOUNTER → 2017-11-15 | Outpatient (CLI) | payer MEDICARE, OTHER ==
[~2017-11-15] VITALS: Ht 162.6 cm; Wt 127.4 kg
[~2017-11-15] MED LIST changes: +BACL10TA PO; +CHLORHEXIDINE GLUCONATE 2 % 1 PACK (2 CLOTHS) TOPICAL PRN; +DEXTROSE 5%-LACTATED RING INJ 1,000 ML IV SCH; +FLUO1TAB3 PO; +HYDR25TA5 PO; +INSULIN HUMAN REGULAR 1,000 UNITS/10 ML VIAL SQ PRN; +LACTATED RINGER'S 1000 ML IV PRN; +LIDOCAINE HCL 1% PF 5 ML SYRINGE OTHER ONE; +LISI-515 PO; +METF1000 PO; -METF500T PO; +METOPROLOL TARTRATE 25 MG TAB PO PRN; +NAPR500 PO; +POVIDONE IODINE 5% (ANTISEPSIS KIT) 4 APPLICATIONS EACH NARE PRN; +PROPOFOL 200 MG/20 ML AMP IV ONE; +SITA1TAB2 PO; +SODIUM CHLORID 0.9% 500 ML IV PRN
--- NOTE | 2017-11-15 11:10 | GIPROC ---
[facility] [address] [facility]. [facility], [address] COLONOSCOPY PROCEDURE REPORT EXAM DATE: 11/15/2017 PATIENT NAME: Esmer Dee MR #: [id number] BIRTHDATE: 1980 ENDOSCOPIST: Dione Solitario MD ORDER #: [id number] PIPE FITTER APPRENTICE: Blessing Duran and Crista Mcqueen STATUS: outpatient INDICATIONS: The patient is a 37 yr old female here for a colonoscopy due to patient's immediate family history of colon cancer PROCEDURE PERFORMED: Colonoscopy, incomplete MEDICATIONS: None and Per Anesthesia. PREP QUALITY: poor PREP TYPE:Other: ESTIMATED BLOOD LOSS: None CONSENT: The patient understands the risks and benefits of the procedure and understands that these risks include, but are not limited to: sedation, allergic reaction, infection, perforation and/or bleeding. Alternative means of evaluation and treatment include, among others: physical exam, x-rays, and/or surgical intervention. The patient elects to proceed with this endoscopic procedure. medical equipment was checked for proper function. Hand hygiene and appropriate measures for infection prevention was taken. After the risks, benefits and alternatives of the procedure were thoroughly explained, Informed consent was verified, confirmed and timeout was successfully executed by the treatment team. A digital exam revealed external hemorrhoids The Pentax [id number] endoscope was introduced through the anus and advanced to the cecum, which was identified by both the appendix and ileocecal valve. The instrument was then slowly withdrawn as the colon was fully examined. COLON FINDINGS: Diverticulosis sigmoid,descending significant semisoild stool mostly in right colon-poor visualisation. Retroflexed views revealed internal hemorrhoids and Retroflexed views revealed small internal hemorrhoids The scope was then completely withdrawn from the patient and the procedure terminated. ADVERSE EVENTS: There were no complications. IMPRESSIONS: 1. Diverticulosis sigmoid,descending significant semisoild stool mostly in right colon-poor visualisation 2. Retroflexed views revealed internal hemorrhoids 3. Retroflexed views revealed small internal hemorrhoids 4. Revealed external hemorrhoids RECOMMENDATIONS: 1. High fiber diet 2. Probiotics from any [facility] or health food store 3. Yearly rectal exams 4. Benefiber 2 tsp daily RECALL: Return 3 months Colonoscopy better prep-miralax prep Dione Solitario MD eSigned: Dione Solitario MD 11/15/2017 11:09 AM cc: PATIENT NAME: Jason Deeemily Gallardo MR#: [id number]
[2017-11-15 11:17] VITALS: BP 114/81; PULSE 83; RESP 20; TEMP 98.1; O2SAT 99
== END ==
LOC: HEND 08:07
PROVIDERS: ATTEND Internal Medicine Gastroenterology
DX: Z12.11 Encounter for screening for malignant neoplasm of colon (principal); Z80.0 Family history of malignant neoplasm of digestive organs; K57.30 Diverticulosis of large intestine without perforation or abscess without bleeding; K64.4 Residual hemorrhoidal skin tags; K64.8 Other hemorrhoids; E66.01 Morbid (severe) obesity due to excess calories; Z68.42 Body mass index [BMI] 45.0-49.9, adult; E10.8 Type 1 diabetes mellitus with unspecified complications
CPT/HCPCS: 00812; 82948; G0105; J1815; J7120